=== PATIENT | male | born 1965 | race African-American/Black ===

== ENCOUNTER 2025-07-06 22:56 | Inpatient (IN) | payer BC, SELFPAY ==
[2025-07-06] VITALS (10 sets, daily range): BP systolic 99–155; BP diastolic 71–88; BMI 28.9
--- NOTE | 2025-07-06 15:28 | ED.GENMED ---
History of Present Illness
<Geeta Leyva MD, Resident - Last Filed: 07/06/25 20:57>
General
Chief Complaint: Fever
Source: patient and significant other
Exam Limitations: none
Time Seen by Provider: 07/06/25 15:27
History of Present Illness
History of Present Illness:
59yo M with a hx of prostate ca (s/p resection, chemo) and recurrent incisional hernia c/b bowel incarceration (s/p repair & partial bowel resection last month) who presents with 1 day of fevers.
Patient was recently discharged from [facility] after repair of incarcerated incisional hernia (s/p bowel resection) on 06/17, with course c/b DVT & intraabdominal hematoma requiring operative drainage. Since discharge, pt has had serosanguinous output
from 2 abd APOLLO drains and minimal abdominal discomfort. No fevers at home (or during hospital course) until this morning, when he had a fever of 101.2. This did not resolve s/p tylenol (was 101.2 two hrs later), so he took more tylenol and come to
the ED. States that he has been feeling lethargic and exhausted for last 24hr, as well as nauseous. Denies any worsening abd pain, denies any new erythema around abd wounds, denies any purulent output from drains. Denies any vomiting, diarrhea,
constipation. Denies cough, sick contacts, chest pain. Denies dysuria. Has had NICOLE for last week, which has been improving slowly. This week, restarted his anti-androgen prostate cancer therapy & steroids. Has had some hot flashes with that
medication in the past, but this feels different. Follows with oncologist at [facility]. Took 1600mg tylenol so far at home.
Past History
<Geeta Leyva MD, Resident - Last Filed: 07/06/25 20:57>
Past History
ED Past Medical History: None
ED Past Surgical History: None
Social History
Tobacco: Non-smoker
Living: with family
Employment: Employed
Review of Systems
<Geeta Leyva MD, Resident - Last Filed: 07/06/25 20:57>
Review of Systems
All Other Systems: ROS reviewed and negative except as documented in HPI and ROS
Constitutional: Reports fever and fatigue
EENT: Reports no symptoms
Respiratory: Reports no symptoms
Cardiac: Reports no symptoms
ABD/GI: Reports no symptoms
: Reports no symptoms
Musculoskeletal: Reports edema
Skin: Reports no symptoms
Neurological: Reports no symptoms
Psychiatric: Reports no symptoms
Phy Exam
<Geeta Leyva MD, Resident - Last Filed: 07/06/25 20:57>
General Physical Exam
General Presentation: no apparent distress
General age: appears stated age
General Skin: warm and dry
General Habitus: normal
General Mental: alert
Cardiovascular Exam
Cardiovascular Exam: regular rate/rhythm and no edema
Heart Sounds: normal
Pulmonary Exam
Pulmonary Exam: lungs clear, no respiratory distress and no crackles
Gastrointestinal Exam
Gastrointestinal Exam: non tender, non distended, surgical scar and other (2 APOLLO drains with minimal serosanguinous drainage; well-healing/well-approximated surgical scar on abdomen; mild erythema surrounding APOLLO drain insertion sites; no significant
tenderness to palpation throughout stomach )
Neurological Exam
Neurological Exam: alert
Musculoskeletal Exam
Musculoskeletal Exam: full ROM and edema (bilateral NICOLE, pitting on feet 1+ )
Skin Exam
Skin Exam: normal color and warm/dry
Psychiatric Exam
Psychiatric Exam: normal mood/affect
Sepsis
<Geeta Leyva MD, Resident - Last Filed: 07/06/25 20:57>
Sepsis Screening
Sepsis Assessment: Sepsis Ruled Out
Sepsis Screen
Sepsis Screen: Sepsis Ruled Out
Date: 07/06/25
Time: 20:57
Course
<Geeta Leyva MD, Resident - Last Filed: 07/06/25 20:57>
Orders/Labs/Results
Orders:
Orders
07/06/25 15:36
Electrocardiogram (*1) Urgent
Reason for Study: Other
Other Reason for Exam: Possible Sepsis
EKG- Treatment ONCE
07/06/25 16:06
Complete Blood Count/With Diff Urgent
Comprehensive Metabolic Panel Urgent
Lactic Acid Q4H
Comment: ON ICE, CANCEL 2ND ORDER IF FIRST LACTIC ACID LEVEL <2
Prothrombin Time Urgent
Blood Culture Q20M
KEEGAN Source: Blood/Venous
Specimen Description:
Comment: Urgent from separate sites. If patient screens positive for possible sepsis
07/06/25 16:34
CT Abd/pelvis W Iv Cont Urgent
Comment:
Reason For Exam: fever, right sided pain, recent hernia repair HUP
07/06/25 16:46
COVID-19 Antigen Urgent
Source: Nasal Swab
Urinalysis Reflex To Culture Urgent
Date Specimen was Collected: 07/06/25
Time Specimen was Collected: 16:42
Urine Microscopic Reflex Cult Urgent
Blood Culture Q20M
KEEGAN Source: Blood/Venous
Specimen Description:
Comment: Urgent from separate sites. If patient screens positive for possible sepsis
Influenza A+B Rapid Molecular Urgent
KEEGAN Source: Nasal Swab
Specimen Description:
07/06/25 16:47
0.9% Sodium Chloride 1000 ml [Nss] 1,000 ml IV BOLUS
07/06/25 18:24
Acetaminophen [Tylenol] 1,000 mg .ROUTE .STK-MED ONE
Acetaminophen [Tylenol] 325 mg PO NOW STA
07/06/25 18:29
Acetaminophen [Tylenol] 650 mg PO NOW STA
07/06/25 20:44
CR Chest - 2 Views Urgent
Comment:
Reason For Exam: fever of unknown etiology
Abnormal Lab Results
07/06/25 07/06/25
16:06 16:46
WBC 12.6 H 10^3/uL
(4.8-10.8)
RBC 2.52 L 10^6/uL
(4.70-6.10)
Hgb 7.9 L g/dL
(13.0-18.0)
Hct 23.7 L %
(39.0-52.0)
MCH 31.3 H pg
(27.0-31.0)
RDW 17.1 H %
(11.5-14.5)
Plt Count 439 H 10^3/uL
(130-400)
Abs Immat Gran (auto) 0.1 H 10^3/uL
(0-0.05)
Absolute Neuts (auto) 10.8 H 10^3/uL
(1.4-6.5)
Absolute Lymphs (auto) 0.7 L 10^3/uL
(1.2-3.4)
Absolute Monos (auto) 1.0 H 10^3/uL
(0.1-0.6)
Neutrophils % 85.8 H %
(42.2-75.2)
Lymphocytes % 5.2 L %
(20.5-51.1)
PT 18.1 H Sec
(11.4-14.6)
Sodium 131 L mmol/L
(135-145)
Glucose 107 H mg/dl
(70-99)
Total Protein 5.7 L g/dl
(6.3-8.2)
Albumin 3.0 L g/dl
(3.5-5.0)
Urine Urobilinogen 2+ A
(Neg - 1+)
Urine RBC 3-6 A /HPF
(0-2)
Urine Bacteria (Reflex) Few A
(Negative)
Urine Albumin (Reflex) 1+ A
(Neg - Trace)
07/06/25 16:06
07/06/25 16:06
Vital Signs
Initial and Last Documented VS:
Initial Vital Signs
Temp Pulse Resp BP Pulse Ox
98.4 F 90 16 99/73 100
07/06/25 15:04 07/06/25 15:04 07/06/25 15:04 07/06/25 15:04 07/06/25 15:04
Last Documented Vital Signs
Temp Pulse Resp BP Pulse Ox
100.8 F H 99 17 155/88 96
07/06/25 20:08 07/06/25 20:00 07/06/25 20:00 07/06/25 20:00 07/06/25 19:30
<Nubia Negrete, DO - Last Filed: 07/06/25 20:48>
Orders/Labs/Results
Orders:
Orders
07/06/25 15:36
Electrocardiogram (*1) Urgent
Reason for Study: Other
Other Reason for Exam: Possible Sepsis
EKG- Treatment ONCE
07/06/25 16:06
Complete Blood Count/With Diff Urgent
Comprehensive Metabolic Panel Urgent
Lactic Acid Q4H
Comment: ON ICE, CANCEL 2ND ORDER IF FIRST LACTIC ACID LEVEL <2
Prothrombin Time Urgent
Blood Culture Q20M
KEEGAN Source: Blood/Venous
Specimen Description:
Comment: Urgent from separate sites. If patient screens positive for possible sepsis
07/06/25 16:34
CT Abd/pelvis W Iv Cont Urgent
Comment:
Reason For Exam: fever, right sided pain, recent hernia repair HUP
07/06/25 16:46
COVID-19 Antigen Urgent
Source: Nasal Swab
Urinalysis Reflex To Culture Urgent
Date Specimen was Collected: 07/06/25
Time Specimen was Collected: 16:42
Urine Microscopic Reflex Cult Urgent
Blood Culture Q20M
KEEGAN Source: Blood/Venous
Specimen Description:
Comment: Urgent from separate sites. If patient screens positive for possible sepsis
Influenza A+B Rapid Molecular Urgent
KEEGAN Source: Nasal Swab
Specimen Description:
07/06/25 16:47
0.9% Sodium Chloride 1000 ml [Nss] 1,000 ml IV BOLUS
07/06/25 18:24
Acetaminophen [Tylenol] 1,000 mg .ROUTE .STK-MED ONE
Acetaminophen [Tylenol] 325 mg PO NOW STA
07/06/25 18:29
Acetaminophen [Tylenol] 650 mg PO NOW STA
07/06/25 20:44
CR Chest - 2 Views Urgent
Comment:
Reason For Exam: fever of unknown etiology
Abnormal Lab Results
07/06/25 07/06/25
16:06 16:46
WBC 12.6 H 10^3/uL
(4.8-10.8)
RBC 2.52 L 10^6/uL
(4.70-6.10)
Hgb 7.9 L g/dL
(13.0-18.0)
Hct 23.7 L %
(39.0-52.0)
MCH 31.3 H pg
(27.0-31.0)
RDW 17.1 H %
(11.5-14.5)
Plt Count 439 H 10^3/uL
(130-400)
Abs Immat Gran (auto) 0.1 H 10^3/uL
(0-0.05)
Absolute Neuts (auto) 10.8 H 10^3/uL
(1.4-6.5)
Absolute Lymphs (auto) 0.7 L 10^3/uL
(1.2-3.4)
Absolute Monos (auto) 1.0 H 10^3/uL
(0.1-0.6)
Neutrophils % 85.8 H %
(42.2-75.2)
Lymphocytes % 5.2 L %
(20.5-51.1)
PT 18.1 H Sec
(11.4-14.6)
Sodium 131 L mmol/L
(135-145)
Glucose 107 H mg/dl
(70-99)
Total Protein 5.7 L g/dl
(6.3-8.2)
Albumin 3.0 L g/dl
(3.5-5.0)
Urine Urobilinogen 2+ A
(Neg - 1+)
Urine RBC 3-6 A /HPF
(0-2)
Urine Bacteria (Reflex) Few A
(Negative)
Urine Albumin (Reflex) 1+ A
(Neg - Trace)
07/06/25 16:06
07/06/25 16:06
Vital Signs
Initial and Last Documented VS:
Initial Vital Signs
Temp Pulse Resp BP Pulse Ox
98.4 F 90 16 99/73 100
07/06/25 15:04 07/06/25 15:04 07/06/25 15:04 07/06/25 15:04 07/06/25 15:04
Last Documented Vital Signs
Temp Pulse Resp BP Pulse Ox
100.8 F H 99 17 155/88 96
07/06/25 20:08 07/06/25 20:00 07/06/25 20:00 07/06/25 20:00 07/06/25 19:30
<Geeta Leyva MD, Resident - Last Filed: 07/06/25 20:57>
MDM/Problems Addressed
Differential Diagnosis Includes:
Ddx:
Intraabdominal infection, abscess
SSTI surgical site
URI prodromal
UTI
Medication SE (anti-androgen medication that pt recently restarted can be associated with hot flashes & fatigue)
Current temp 98.4, AVSS
MDM/Problems Addressed:
- CBC, CMP
- Lactic acid
- Blood cx x2
- UA w reflex to cx
- COVID, FLU
- Consider CT a/p w IV contrast
<Geeta Leyva MD, Resident - Last Filed: 07/06/25 20:57>
*Pulse Oximetry
SaO2: 100
Oxygen Mode of Delivery: Room air
Patient hypoxic: no
*Critical Care Note
Total Time (30-74mins, 75-104mins- exclusive of procedures): Not Applicable
<Geeta Leyva MD, Resident - Last Filed: 07/06/25 20:57>
Update Note
Update Note:
WBC elevated 12.6 (no comparison available)
6:00pm
CT a/p without signs c/f intraabdominal infection; gas.
1. There is heterogeneous thickening/expansion of the ventral abdominal wall soft tissues/rectus abdominis musculature, with a surgical drain in place. Mild overlying subcutaneous inflammatory change. Findings are most in keeping with postoperative
changes with seroma/hematoma formation within and just deep to the abdominal wall musculature. No intraperitoneal extension. No convincing evidence for abscess. No evidence for recurrent abdominal wall hernia.
2. Probable mild postoperative ileus.
3. Urinary bladder contains a small amount of intravesical gas anteriorly, possibly related to recent instrumentation (versus cystitis).
Repeat temperature 102.5.
Will give 650mg tylenol (total 2250 mg today)
Will plan to call surgery at [facility] for clearance on admission here for FUO vs. admit at [facility]. Surgery was done by Murray Tamez (plastics) & Maxime Valdez (gen surg).
6:45pm
[facility] left voicemail geovany Tamez.
8:45pm
Spoke with [place] oncologist & Joi - agree with plan to admit for observation overnight at [place]. Can try dose of broad spectrum abx. If not sx, okay to discharge tmrw.
Will get CXR for completeness to eval sources of possible infection, although no pulm sx.
ED Attending Note
<Geeta Leyva MD, Resident - Last Filed: 07/06/25 20:57>
-
Portions of this chart may have been created with voice recognition software.� Occasional wrong word or��sound alike� substitutions may have occurred due to the inherent limitations of voice recognition software.
<Nubia Negrete DO - Last Filed: 07/06/25 20:48>
ED Attending Note
Patient seen and examined by attending physician: Yes
I performed the substantive portion of visit, reviewed & personally made and approve the management plan that is documented in note by myself or BLAISE.: Yes
I performed a history and physical exam of patient and discussed management with resident, I reviewed resident's note and agree with documented findings and plan of care.: Yes
ED Attending Note:
59-year-old male with history of prostate CA presenting to the emergency department for fever. Patient status post complicated hospital admission in June at [facility]. Patient was initially hospitalized for
incarcerated hernia, status post repair. Hospitalization complicated by development of right lower extremity DVT, now on Xarelto. Patient also developed a postoperative hematoma, which also required operative repair. Patient now has [address] He was discharged a week ago. Notes that he was restarted on his therapeutic agent, abiraterone, and is also on Lupron. Patient's oncologic care is also at [facility]. Fever this morning was 1 and 1.3. He took Tylenol and fever still present
so he took another dose and came to the hospital. Denies specific symptoms such as cough or fever. Does note some general abdominal discomfort, however still in the post operative period. Vital signs on arrival are relatively unremarkable,
however on recheck of temperature in, 99.9.
On exam patient is resting, no acute distress. Unremarkable cardiac and pulmonary exam. Patient overall nontoxic. On abdominal exam, APOLLO drains in place to bilateral lower quadrants with minimal drainage. Mild pain to the right lower quadrant
without rebound or guarding. Also some generalized discomfort to the right lower extremity except swelling, however partner at bedside notes that the swelling is improved, known DVT. Given postoperative. With fever, plan for laboratory analysis,
cultures, viral swabs, CT imaging to ensure no postoperative complications
18:30 - Patient's labs do show leukocytosis, otherwise unremarkable. No neutropenia. Urine without sign of infection. CT shows postoperative changes without findings of acute infection. On recheck of temperature, remains febrile. Will redose
Tylenol. Will discuss with surgery at [facility] given fever of unknown etiology in the postop period
20:30 -delay in reaching physician at [facility]. Did speak to physician on-call for surgery. At this time without findings of acute surgical complication, feel reasonable to stay at our facility for continued monitoring, following
concerns. Patient is agreeable to this plan.
20:45 -did speak to patient's surgeon, Dr. Cueva, in agreement with no concern at this time for postoperative infection, agrees with observation admission disposition home if remains hemodynamically
Discharge Plan
Departure
Patient Disposition: Admit
Date of Disposition: 07/06/25
Time of Disposition: 20:57
Admit to: Med/Surg
Admit to doctor: Wilmer
Presentation/result/management discussed w/ accepting MD/DO: Hospitalist
Patient with high blood pressure during this ER visit?: No
Condition: Good
Covid-19: Negative COVID-19
Discharge Problem:
Fever of unknown origin (FUO)
Prescriptions:
No Action
ciprofloxacin HCl [Ciloxan] 5 ML drops
1 drp OPHTHALMIC .Q4H WHILE AWAKE Qty: 5 0RF
Referrals:
PRIVATE,PHYSICIAN [Family Provider, Internal Medicine]
Interventions
Interventions:
*Risk Screen - Suicide Last Done: 07/06/25 16:00
*General Assessment Last Done: 07/06/25 16:00
*Neglect/Abuse Screening Last Done: 07/06/25 16:00
*ED COVID-19 Vaccine History Last Done: 07/06/25 16:00
*ED Influenza Vaccine History Last Done: 07/06/25 16:00
[facility] Fall Risk Assessment Tool Last Done: 07/06/25 16:00
ED- Neurological Assessment Last Done: 07/06/25 16:00
ED-Skin Assessment Last Done: 07/06/25 16:00
Discharge Date and Time
Print Language: DUTCH
[2025-07-06 16:21] LABS: Hematocrit 23.7 % (39.0-52.0); Hemoglobin 7.9 g/dL (13.0-18.0); Mean Corp Hgb Conc. 33.3 g/dL (33.0-37.0); Mean Corpuscular Volume 94.0 fL (80.0-94.0); Nucleated Red Blood Cells % 0 % (-); Platelet Count 439 10^3/uL (130-400); Red Cell Dist. Width 17.1 % (11.5-14.5)
[2025-07-06 16:33] LABS: INR 1.49; PT 18.1 Sec (11.4-14.6)
[2025-07-06 16:43] LABS: ALT (SGPT) 36 U/L (0-50); AST (SGOT) 25 U/L (17-59); Albumin 3.0 g/dl (3.5-5.0); Alkaline Phosphatase 71 U/L (38-126); Blood Urea Nitrogen 10 mg/dl (9-20); Calcium 8.6 mg/dl (8.4-10.2); Carbon Dioxide 27 mmol/L (22-30); Chloride 103 mmol/L (98-107); Estimated Creatinine Clearance 93 ml/min; Glucose 107 mg/dl (70-99); Potassium 3.8 mmol/L (3.5-5.1); Sodium 131 mmol/L (135-145); Total Protein 5.7 g/dl (6.3-8.2); eGFR > 60.00
[2025-07-06 17:09] LABS: Urine Character Clear (Clear)
[2025-07-06 17:23] LABS: COVID-19 Antigen Negative (Negative)
[2025-07-06 17:26] LABS: Urine White Cell 0-2 /HPF (0-5)
[2025-07-06] MEDS: TYLENOL 650 MG PO (18:30)
[2025-07-06] MEDS: NSS 1000 IV (18:32)
--- NOTE | 2025-07-06 21:32 | HPS.HSE ---
Family Physician
-
Family Physician: PHYSICIAN PRIVATE
Chief Complaint
-
Fever
History of Present Illness
Patient is a 59 y/o male past medical history of prostate cancer with multiple prior hernia repairs who presents with fever. Patient recently underwent a ventral hernia repair on Jun 17. His hospitalization was complicated by development of RLE
DVT for which he was initially started on a heparin drip. Patient subsequently developed acute blood loss anemia related to a hematoma. Patient underwent hematoma evaluation on Jun 24. Patient was restarted on the heparin drip and Hgb remained
stable. He was discharged from the hospital on July 02 on Eliquis, and with [address] to the lower abdomen. Today patient developed acute onset of fevers which have persisted for several hours. Patient last received Tylenol at 18:30
and upon my evaluation ~ 3.5 hours later temperature is back up to 102.5F. Patient reports generalized weakness, but denies any other complaints at the present time.
Medical History
Past Medical History
Past Medical History: Reports Other
Additional Past Medical History:
Prostate Cancer
DVT
Past Surgical History: Reports Other
Additional Past Surgical History:
Prostatectomy
Mutliple Hernia Repair
Social History
Tobacco: Non-smoker
Alcohol: Occasional
Drug: Marijuana (Last usage June)
Family History
Family History: Not pertinent
Allergies / Home Medications
Allergies reflects when Allergies were last updated in [employer].
Home Medications with original date entered in [employer]
Allergy/Medication List:
Allergies
Allergy/AdvReac Type Severity Reaction Status Date / Time
No Known Allergies Allergy Unverified 07/06/25 15:09
Home Medications
abiraterone 250 mg tablet (Zytiga) 1,000 mg PO DAILY 07/06/25
apixaban 5 mg tablet (Eliquis) 5 mg PO BID 07/06/25
prednisone 5 mg tablet 5 mg PO DAILY 07/06/25
Review of Systems
-
History Source: Patient
A 12 point ROS was completed and negative except as noted: Yes
Constitutional: Reports Fever
Respiratory: Denies Cough or Trouble Breathing
Cardiac: Denies Chest Pain or Palpitations
Abdomen/GI: Denies Abdominal Pain, Nausea, Vomiting, Diarrhea or Constipated
Skin: Denies Rash
Physical Exam
Vital Signs
Vital Signs
Temp Pulse Resp BP Pulse Ox
100.5 F H 95 27 134/76 97
07/06/25 21:10 07/06/25 21:08 07/06/25 21:08 07/06/25 21:08 07/06/25 21:08
Physical Exam
General: Comfortable and Conversant
HEENT: Anicteric and Moist mucous membranes
Respiratory: Clear and Non Labored Respirations
Cardiac: S1/S2, Regular Rhythm and Tachycardia (Slightly)
GI: Soft, Non Tender and Other (Bilateral APOLLO Drains: Right drain with serosanguinous drainage, Left drain less drainage slightly cloudy; Drain sites without tenderness of surrounding erythema; Midline ventral hernia repair site with sutures in place
without drainage or surrounding erythema)
Rectal: Deferred by Provider
Genito-urinary: Clear Urine
Musculoskeletal: No Clubbing, No Cyanosis and No Edema
Skin: Warm and Dry
Neuro: Awake, Alert, Oriented and Nonfocal/grossly intact
Psych: Calm
Laboratory Results
-
07/06/25 16:06
07/06/25 16:06
Laboratory Results
PT 18.1 Sec (11.4-14.6) H 07/06/25 16:06
INR 1.49 07/06/25 16:06
Lactic Acid 0.9 mmol/L (0.7-2.0) 07/06/25 16:06
Lactic Acid Cancelled 07/06/25 16:06
Total Bilirubin 1.0 mg/dl (0.2-1.3) 07/06/25 16:06
AST 25 U/L (17-59) 07/06/25 16:06
ALT 36 U/L (0-50) 07/06/25 16:06
Alkaline Phosphatase 71 U/L (38-126) 07/06/25 16:06
Abd/Pelvis CT Scan:
There is heterogeneous thickening/expansion of the ventral abdominal wall soft tissues/rectus abdominis musculature, with a surgical drain in place. Mild overlying subcutaneous inflammatory change. Findings are most in keeping with postoperative
changes with seroma/hematoma formation within and just deep to the abdominal wall musculature. No intraperitoneal extension. No convincing evidence for abscess. No evidence for recurrent abdominal wall hernia.
Probable mild postoperative ileus.
Urinary bladder contains a small amount of intravesical gas anteriorly, possibly related to recent instrumentation (versus cystitis).
Data Reviewed
-
CT Scan: Report Reviewed by me
Lab Data: Labs Reviewed by me
Impression/Plan
-
Fever unclear etiology, clinical concern for infection following recent ventral hernia repair (06/17) and hematoma evacuation (06/24) at [facility]
-Consult Surgery and Infectious Disease
-Obtain cultures from APOLLO drains
-Await blood cultures
-Start empiric Vancomycin and Zosyn
Acute Blood Loss Anemia
-Hgb stable from recent discharge from [facility] on Jul 02
Right Lower Extremity DVT - Jun 2025
-Continue Eliquis
Prostate Cancer with localized recurrence
-Hold prednisone and abiraterone as recommended by patient's primary oncologist
-Patient also received Lupron injection on Jul 03
Code Status: Full Code
--- NOTE | 2025-07-06 21:49 | W.PN.UPDATE ---
Update Note
Progress Note Update
This note serves as an addendum to the H&P by plate keeper BLAISE�
[facility]
HPI�
59M
HX prostate cancer (s/p surgical resection & anti-androgen therapy) and recurrent incisional hernias (most recently s/p incarcerated hernia repair at [facility] 06/17) c/b DVT & abdominal hematoma.
Pt had been recovering well at home, then developed fever 101.5, 101.2 today along with lethargy/malaise.
No upper and lower respiratory sxs.
Reviewed VS:
Vital Signs
Temp Pulse Resp BP Pulse Ox
100.5 F H 97 22 134/76 95
07/06/25 21:10 07/06/25 21:30 07/06/25 21:30 07/06/25 21:08 07/06/25 21:30
07/06/25
18:21 07/06/25
20:08 07/06/25
21:10
Temp 102.5 F H 100.8 F H 100.5 F H
PE
Gen: Not toxic
HEENT: aniteric
Neck: supple
Lungs: CTA
Cor:RRR
Abdomen:�
2 APOLLO drains with minimal serosanguineous drainage
well-healing/well-approximated surgical scar on abdomen
mild erythema surrounding APOLLO drain insertion sites
no significant tenderness to palpation throughout stomach
SENIOR CYBER SECURITY ANALYST:AAO3
Admission w/u:
07/06/25 07/06/25
16:06 16:46
WBC 12.6 H
Hgb 7.9 L
MCV 94.0
Plt Count 439 H
INR 1.49
Sodium 131 L
Creatinine 0.9
eGFR > 60.00
Albumin 3.0 L
Leukocyte Esterase Rfl Negative
Urine WBC (Reflex) 0-2
SARS-CoV-2 Antigen Negative
07/06/25
16:06
Lactic Acid 0.9
NEG Flu
2 APOLLO drain
BCx pending.
CXR Pending
CT AP W Iv Cont
1. There is heterogeneous thickening/expansion of the ventral abdominal wall soft tissues/rectus abdominis musculature, with a surgical drain in place.
Mild overlying subcutaneous inflammatory change. Findings are most in keeping with postoperative changes with seroma/hematoma formation within and just deep to the abdominal wall musculature. No intraperitoneal extension. No convincing
evidence for abscess. No evidence for recurrent abdominal wall hernia.
2. Probable mild postoperative ileus.
3. Urinary bladder contains a small amount of intravesical gas anteriorly, possibly related to recent instrumentation (versus cystitis).
NO PRIOR hospitalist admission:
ASSESSMENT & PLAN
Evaluation for post op fever
Associated SIRS - unclear origin
Diff origins: extraperitoneal . less likely intraperitoneal
- Somewhat HD stable
- BCx pending
- Empiric BS ABx with IV Zosyn and IV Vancomycin
- IV NS
- Tylenol PRN
- FU T curve and WCC
- ID consult
Recent incarcerated hernia repair at [facility] 06/17 due to recurrent incisional hernias
HX prostate cancer (s/p surgical resection & anti-androgen therapy) c/b DVT & abdominal hematoma requiring Heparin gtt and clot evacuation
- P surgery at [facility]
- ER attd discussed with Primary Surgeon - suggest IV ABx and observe
Post op R Claudio DVT; on Eliquis
Large abdominal hematoma s/p hematoma clot evacuation
DVT Px:
Full code
IP MS
[2025-07-06] MEDS: TYLENOL 1000 MG PO (22:31)
[2025-07-06] MEDS: ZOSYN 50 IV (22:31)
[2025-07-06] MEDS: ELIQUIS 10 MG PO (22:46)
[2025-07-06] MEDS: VANCOCIN 540 MG IV (22:46)
[2025-07-06 23:14] LABS: Procalcitonin 0.20 ng/ml (0.0-0.25)
[2025-07-06] MEDS: MOTRIN 400 MG PO (23:44)
--- NOTE | 2025-07-06 23:52 | PTCARENOTE ---
Pt received from ED to [facility]-2. Pt oriented to room and call hawkins.
[2025-07-07] VITALS (8 sets, daily range): BP systolic 111–166; BP diastolic 68–89; BMI 29.8
[2025-07-07] MEDS: NSS 1000 IV ×2 (00:56→14:37)
--- NOTE | 2025-07-07 01:51 | PHA.VAN.IN ---
Assessment
- Assessment
Renal Function: Appears similar to baseline
Concomitant Antimicrobials: Piperacillin/Tazobactam
AUC Dosing Plan
- Empiric Dosing
Initial / Loading Dose: 2000 mg @ 2246
Maintenance Regimen: 750 mg IV Q8H
Estimated AUC (mcg*h/mL): 449
Estimated Peak (mcg*h/mL): 24.3
Estimated Trough (mcg/ml): 14.0
Estimated Half Life (H): 8.8
- Monitoring
No levels ordered at this time: Level to be ordered upon follow-up
Pharmacokinetics Vancomycin I
- -
Patient Age: 59
Patient Sex: Male
Vancomycin Day #: 1
Indication: Empiric
Requesting Provider: Jeffrey Burger PA-C
Height / Weight:
Height 5 ft 10 in
Actual Weight 94.064 kg
- Vital Signs / Lab Results
Temp Pulse Resp BP Pulse Ox
99.4 F 93 16 111/70 97
07/07/25 01:36 07/07/25 00:19 07/07/25 00:19 07/07/25 00:19 07/07/25 00:19
Lab Results - Hematology
07/06/25
16:06
WBC 12.6 H
Lab Results - Chemistry
07/06/25
16:06
BUN 10
Creatinine 0.9
Estimated Creat Clear 93
Albumin 3.0 L
07/06/25 07/06/25 07/06/25
16:06 16:06 22:26
Lactic Acid 0.9 Cancelled < 0.5 L
Lab Results - Urine
07/06/25
16:46
Urine Nitrite (Reflex) Negative
Leukocyte Esterase Rfl Negative
Urine WBC (Reflex) 0-2
Ur Squamous Epith Cells 3-5
Urine Bacteria (Reflex) Few A
Microbiology Results
07/06/25 16:46 Influenza Types A & B (PINKY) - Final
Nasal Swab Negative for Influenza A & B, NAAT
Negative results must be combined with clinical observations
and patient history.
Nucleic Acid Amplification test (NAAT)performed on the
[employer] platform.
[2025-07-07] MEDS: ZOSYN 50 IV ×4 (05:19→23:02)
[2025-07-07] MEDS: VANCOCIN 150 IV ×3 (06:02→21:56)
[2025-07-07] MEDS: TYLENOL 650 MG PO ×3 (07:37→23:06)
[2025-07-07] MEDS: ELIQUIS 5 MG PO ×2 (07:37→19:33)
--- NOTE | 2025-07-07 09:39 | CM ---
Patient seen at bedside on . Patient states that he lives with his significant other in a 2 story home with no DME that he uses. Patient has a [facility] nurse Regla Juarez that follows with him when home. Patient PCP is Dr. Betzy Steinberg from [facility] and he uses the [facility] in [place]. Patient plan is for discharge home with no needs at this time. CM will continue to follow for discharge planning needs.
Plan; home with [facility] nurse cade; unclear if from home health or another office/department
--- NOTE | 2025-07-07 09:40 | PTCARENOTE ---
Pt's temp at 7am was 100.7. Tylenol given; temp recheck 100.6. Hospitalist aware.
[2025-07-07 10:24] LABS: Hematocrit 24.7 % (39.0-52.0); Hemoglobin 8.0 g/dL (13.0-18.0); Mean Corp Hgb Conc. 32.4 g/dL (33.0-37.0); Mean Corpuscular Volume 95.7 fL (80.0-94.0); Platelet Count 412 10^3/uL (130-400); Red Cell Dist. Width 16.6 % (11.5-14.5)
[2025-07-07] MEDS: NSS IV (11:24)
[2025-07-07 11:56] LABS: Blood Urea Nitrogen 11 mg/dl (9-20); Calcium 8.3 mg/dl (8.4-10.2); Carbon Dioxide 23 mmol/L (22-30); Chloride 103 mmol/L (98-107); Estimated Creatinine Clearance 90 ml/min; Glucose 95 mg/dl (70-99); Potassium 3.5 mmol/L (3.5-5.1); Sodium 131 mmol/L (135-145); eGFR > 60.00
--- NOTE | 2025-07-07 12:38 | CON.GS ---
Consultation
-
Date/Time Consultation Performed: 07/07/25 1115
Medical History
-
Chief Complaint: fever
History of Present Illness:
Mr Ambriz is a 59 yo male with a h/o prostate cancer status post prostatectomy now on Zytiga (with prednisone) and Lupron and DVT's (UE and LE) who developed a hernia in the short post operative period and was taken for a mesh repair of an
incisional hernia in 2016 with failure of the repair and a second surgery for repair shortly thereafter. He notes that his hernia quickly returned and was increasing in size after this second surgery as well. He was recently with his mother at a
urologist appointment and the surgeon there noted how large his hernia was through his clothing and recommended he follow up with surgery for evaluation. He did this and underwent a ventral hernia repair with both plastics (Tiffanie) and general
surgery (José Miguel) at [facility] with a SBR during the procedure as well on 06/17/25. His course of stay was complicated by development of DVT immediately post op in his RLE with initiation of heparin drip and subsequent development of a intraabdominal
hematoma with RTOR for management on 06/21/25. He had a prolonged course of stay but was eventually able to be transitioned to PO Eliquis and discharged to home on 07/02/25. He felt rather well at first but yesterday he began feeling very fatigued
with mild nausea and fevers. At home his temperature was 101.3 and he was advised by his home care team to present to the ED for evaluation. He has [address] from his prior surgery both draining minimal SSF. His incision is healing well
without erythema or drainage with nylong sutures noted to be in place. He notes he has been passing regular BM's. He denies bleeding issues. Nausea has resolved and he is tolerating regular diet currently.
Past Medical History
Past Medical History: Cancer (prostate s/p surgery, now on maintenance lupron and zytiga with prednisone) and Other (DVT's to UE and LE most recently to RLE)
Past Surgical History: Bowel Resection (SBR at time of VHR), Hernia Repair (Incisional x2 in 2016 with recurrence, VHR 06/17/25 c/b hematoma with RTOR 06/21/25) and Urological (prostatectomy )
Social History
Tobacco: Non-Smoker
Alcohol: Occasional
Drug: Marijuana
Family History
Family History: Cancer (bladder ca in mother)
Allergies / Home Medications
Allergy/AdvReac Type Severity Reaction Status Date / Time
No Known Allergies Allergy Unverified 07/06/25 15:09
�Medication �Instructions �Recorded �Confirmed �Type
abiraterone 250 mg tablet (Zytiga) 1,000 mg PO DAILY 07/06/25 07/07/25 History
apixaban 5 mg tablet (Eliquis) 5 mg PO BID 07/06/25 07/07/25 History
prednisone 5 mg tablet 5 mg PO DAILY 07/06/25 07/07/25 History
Review of Systems
-
History Source: Patient
All other systems: Negative unless noted
A 10 point review of systems was completed, and was negative except as per HPI.
Physical Exam
Vital Signs
Temp Pulse Resp BP Pulse Ox
99.5 F 100 17 133/85 98
07/07/25 11:12 07/07/25 11:12 07/07/25 11:12 07/07/25 11:12 07/07/25 11:12
07/06/25 07/07/25 07/08/25
06:59 06:59 06:59
Actual Weight 94.064 kg
Body Mass Index (BMI) 29.8
Lab Results
07/07/25 10:14
07/07/25 10:14
WBC 14.6 10^3/uL (4.8-10.8) H 07/07/25 10:14
Hgb 8.0 g/dL (13.0-18.0) L 07/07/25 10:14
Hct 24.7 % (39.0-52.0) L 07/07/25 10:14
Plt Count 412 10^3/uL (130-400) H 07/07/25 10:14
Abs Immat Gran (auto) 0.1 10^3/uL (0-0.05) H 07/06/25 16:06
Neutrophils % 85.8 % (42.2-75.2) H 07/06/25 16:06
Physical Exam
General: Well Developed and Well Nourished
HEENT: Normocephalic and Moist Mucous Membranes
Respiratory: Non Labored Respirations
GI: Soft, Non Tender, Non Distended and Other (nylon sutures intact to incision. incision healing well without erythema or drainage. APOLLO drains to lower abd bilaterally both with SSF (no purulence))
Skin: Warm
Neuro: Awake, Alert and AO x 3
Psych: Calm
Data Reviewed
-
CT Scan: Image Personally Visualized and interpreted, Report Reviewed by me, Discussed with Physician and Discussed with Patient
Labs: Labs Reviewed by me, Discussed with Physician and Discussed with Patient
Old Records: Reviewed
Assessment / Plan
-
59 yo male with a h/o prostate cancer status post prostatectomy now on Zytiga (with prednisone) and Lupron and DVT's (UE and LE) with recurrent incisional hernia repairs x2 around 2015 with recurrence, recent VIHR with SBR at [facility] on 06/17 by
plastics (Tiffanie) and general ([facility]) surgery c/b DVT with development of hematoma on AC and RTOR on 06/21 for management. APOLLO x2 left in place and pt discharged to home on Eliquis on 07/02 now presenting with fevers and fatigue. CT imaging with
thickening/expansion of the ventral abdominal wall soft tissues/rectus abdominis musculature without abscess. Evidence of seroma/hematoma formation and pelvic fluid but no significant drainable collections. APOLLO's in place. No evidence of SBR. T max
of 102.5 yesterday evening. Low grade fever to 100.6 this am. BP stable. Borderline tachycardia with HR of 100. Leukocytosis present with uptrend today with WBC of 14.6. VSS. Regular diet was started on admission and he seems to be tolerating it.
Drain and blood cx pending. Flu neg
Records from [facility] unavailable; fortunately, pt does seem to be an excellent historian. Transfer to [facility] under the care of his primary surgeon was attempted last night in the ED with reported recommendation to stay at [facility] for the time being. Will
follow closely here at [facility] for now; but, if fevers/leukocytosis persist would attempt to transfer to [facility] once again. D/W patient who would prefer to be back at [facility] with his primary surgical team as well if he will need to remain as an inpatient for
a number of days
Plan:
Ok to c/w regular diet
c/w abx. ID consulted for recommendations
Blood and drain cx sent and pending
Trend labs
No surgical interventions planned at this time, OK to continue with Eliquis
--- NOTE | 2025-07-07 12:49 | CON.ID ---
Consultation
-
Date/Time Consultation Requested: 07/07/25 0:07
Date/Time Consultation Performed: 07/07/25 12:49
Requesting Provider: Tao BURDEN
Performing Provider: Dr Man
Reason for Consultation: Fever
Chief Complaint / Past History
Chief Complaint
fever
History of Present Illness
Mr Ambriz is a 59 year old male with history of 06/17 for elevative incisional hernia with bowel resection at [facility] with plastics and general surgery, he had two APOLLO drains place and these have continued in place until now. History also notable for
prostate cancer s/p resection and chemotherapy. His operative course was complicated by DVT and large abdominal hematoma formation s/p clot evacuation. He had 5 units of PRBCs over the course of his hospitalization. He was discharged 07/05 on
eliquis. He has minimal serosanguineous drainage from the drains. Then 07/06, yesterday he developed a new fever at home to 102.5 and malaise along with mild nausea. He denies: worsening abdominal pain, erythema around surgical sites, purulence
from the drains. Also no: headache, sinus tenderness, sore throat, cough vomiting/diarrhea/constipation, sick contacts, chest pain, dysuria. Having regular BMs. No other focal complaints. Of note he restarted his anti-androgen therapy and
prednisone 5 mg. Has a healthy cat, no scratches or bites. No recent travel.
Since arrival here he has been spiking fevers to a tmax of 102.5, fever curve may be improving, bp stable, wbc initially 12.6 today 14.6, hgb 8.0, plt 412, L shift was present on arrival, Na 131, cr 0.9, lactic acid 0.9, t bili 1.0, ast 25, alt 36,
alk phos 71, UA no pyuria, covid ag negative, CT head no acute abnormality, CT a/p with IV contrast: likely posoperative seroma/hematoma no evidence for abscess, CXR no acute CP process, procalcitonin 0.2, blood cultures x2 in progress, influenza
negative, body fluid cultures x2 were taken from the old drains, patient is currently on vancomycin and zosyn, reports considerable improvement overnight described initial malaise as an 8 and today malaise as a 2. ID is consulted for assistance
with management.
Past History
Additional Past Medical History:
Prostate Cancer
DVT
Additional Past Surgical History:
Prostatectomy
Multiple Hernia Repair - (Incisional x2 in 2016 with recurrence, VHR 06/17/25 c/b hematoma with RTOR 06/21/25
Allergy History:
No Known Allergies Allergy (Unverified 07/06/25 15:09)
Medications Reviewed: Yes
Social History
Tobacco: Non-Smoker
Alcohol: Occasional
Drug: Marijuana
Family History
Family History: Not Pertinent
Review of Systems
Review of Systems
A 12 point ROS was completed and negative except as noted: Yes
Constitutional: Reports Fever
Respiratory: Denies Cough or Trouble Breathing
Cardiac: Denies Chest Pain or Palpitations
Abdomen/GI: Denies Abdominal Pain, Nausea, Vomiting, Diarrhea or Constipated
Skin: Denies Rash
Vital Signs
Temp Pulse Resp BP Pulse Ox
99.5 F 100 17 133/85 98
07/07/25 11:12 07/07/25 11:12 07/07/25 11:12 07/07/25 11:12 07/07/25 11:12
Physical Exam
Physical Exam
Constitutional: No Acute Distress
Cardiovascular: Regular Rate and S1/S2; Negative Murmur or Rub
Pulmonary: Clear and Symmetric; Negative Wheezes, Rales or Rhonchi
Gastrointestinal: Soft, Non Tender, Non Distended and Normal Bowel Sounds
Skin: Warm and Dry; Negative Rash or Jaundice
Wound: Other (midline surgical site well approximated without erythema warmth, dehiscence; APOLLO drains with scant serosanguinous drainage, tiny erythematous rim around the drain insertion sites)
Lab / Diagnostic Study Results
07/07/25 10:14
07/07/25 10:14
Abs Immat Gran (auto) 0.1 10^3/uL (0-0.05) H 07/06/25 16:06
Absolute Neuts (auto) 10.8 10^3/uL (1.4-6.5) H 07/06/25 16:06
Absolute Lymphs (auto) 0.7 10^3/uL (1.2-3.4) L 07/06/25 16:06
Absolute Monos (auto) 1.0 10^3/uL (0.1-0.6) H 07/06/25 16:06
Absolute Basos (auto) 0.0 10^3/uL (0-0.2) 07/06/25 16:06
Immature Gran % 0.4 % (0-0.5) 07/06/25 16:06
Neutrophils % 85.8 % (42.2-75.2) H 07/06/25 16:06
Lymphocytes % 5.2 % (20.5-51.1) L 07/06/25 16:06
Monocytes % 8.1 % (1.7-9.3) 07/06/25 16:06
Eosinophils % 0.3 % (0-6) 07/06/25 16:06
Basophils % 0.2 % (0-2) 07/06/25 16:06
PT 18.1 Sec (11.4-14.6) H 07/06/25 16:06
INR 1.49 07/06/25 16:06
Lactic Acid < 0.5 mmol/L (0.7-2.0) L 07/06/25 22:26
Procalcitonin 0.20 ng/ml (0.0-0.25) 07/06/25 22:19
Ur Squamous Epith Cells 3-5 /LPF (Few) 07/06/25 16:46
Microbiology Results
Micro:
07/06/25 22:53 Body Fluid Culture - Pending
Fluid Gram Stain - Preliminary
07/06/25 22:53 Body Fluid Culture - Pending
Fluid Gram Stain - Preliminary
07/06/25 16:46 Influenza Types A & B (PINKY) - Final
Nasal Swab Negative for Influenza A & B, NAAT
Negative results must be combined with clinical observations
and patient history.
Nucleic Acid Amplification test (NAAT)performed on the
[employer] platform.
07/06/25 16:46 Blood Culture - Pending
Blood/Venous
07/06/25 16:06 Blood Culture - Pending
Blood/Venous
Assessment / Plan
Fever without a source
S/p VHR 06/17/25 c/b hematoma with RTOR 06/21/25
- blood cultures x2
- APOLLO drain cultures were taken from old drain - expect skin mine
- CXR without infiltrates
- CT a/p with IV contrast with suggestion of seroma/hematoma formation - a possible cause of fevers
- UA without pyuria
- covid and influenza screens negative
- resp viral panel ordered, procalcitonin was negative
- MRSA screen
- continue vancomycin and zosyn for now
--- NOTE | 2025-07-07 13:06 | W.PN.HOSP.TC ---
Today's Communication/Plan
-
f/u cultures
abx
reg diet
continue eliquis
monitor signs/symptoms - f/u ID and Surgery recs
Assessment / Plan
Assessment / Plan
Physical Exam
General: Comfortable and Conversant
HEENT: Anicteric and Moist mucous membranes
Respiratory: Clear and Non Labored Respirations
Cardiac: S1/S2, Regular Rhythm and Tachycardia (Slightly)
GI: Soft, Non Tender and Other (Bilateral APOLLO Drains: Right drain with serosanguinous drainage, Left drain less drainage slightly cloudy; Drain sites without tenderness of surrounding erythema; Midline ventral hernia repair site with sutures in place
without drainage or surrounding erythema)
Rectal: Deferred by Provider
Genito-urinary: Clear Urine
Musculoskeletal: No Clubbing, No Cyanosis and No Edema
Skin: Warm and Dry
Neuro: Awake, Alert, Oriented and Nonfocal/grossly intact
Psych: Calm
Fever unclear etiology, clinical concern for infection following recent ventral hernia repair (06/17) and hematoma evacuation (06/24) at [facility]
-Consulted Surgery and Infectious Disease
-Obtain cultures from APOLLO drains and blood cultures
-Cont Vancomycin and Zosyn
-Monitor clinical symptoms
-Reg diet
Hx of Acute Blood Loss Anemia
-Hgb stable from recent discharge from [facility] on Jul 02
Right Lower Extremity DVT - Jun 2025
-Continue Eliquis
Hyponatremia
-mild
-ctm
#Leukocytosis
-monitor fever curve, wbc
Prostate Cancer with localized recurrence
-Hold prednisone and abiraterone as recommended by patient's primary oncologist
-Patient also received Lupron injection on Jul 03
Code Status: Full Code
Anticipated Discharge: > 48 hours
Subjective/Interval History
-
Date of Service: July 07, 2025
No acute events overnight; still febrile
Objective Data
-
Labs:
Laboratory Results
07/07/25
10:14
WBC 14.6 H
Hgb 8.0 L
Hct 24.7 L
Plt Count 412 H
Sodium 131 L
Potassium 3.5
Chloride 103
Carbon Dioxide 23
BUN 11
Creatinine 0.9
Glucose 95
Calcium 8.3 L
Vital Signs:
Vital Signs
Temp Pulse Resp BP Pulse Ox
99.5 F 100 17 133/85 98
07/07/25 11:12 07/07/25 11:12 07/07/25 11:12 07/07/25 11:12 07/07/25 11:12
I&O
07/06/25 07/07/25 07/08/25
06:59 06:59 06:59
Intake Total 1230 / 1230
Output Total 645 / 645
Balance 585 / 585
Review of Systems
-
History Source: Patient
All other systems: Not reviewed unless documented
Data Reviewed
-
Diagnostic Radiology: Report Reviewed by me
CT Scan: Report Reviewed by me
Labs: Labs Reviewed by me
--- NOTE | 2025-07-07 13:15 | PHA.VAN.FU ---
Vancomycin Assessment / Plan
- Assessment
Renal Function: Stable
WBC's are: Trending Up
In the past 24 hrs, patient has been: Febrile (TMax 102.5)
Concomitant Antimicrobials: Piperacillin-tazobactam
- Dosing Plan
Continue: Vanc 750mg IV q8H
- Monitoring Plan
Peak Level: 07/08 at 0100
Trough Level: 07/08 at 0530
- Follow Up
Pharmacy will continue to follow.
Vancomycin Follow UP
- -
Patient Age: 59
Patient Sex: Male
Vancomycin Day #: 2
Indication: Empiric
Requesting Provider: Jeffrey Burger PA-C
Height / Weight:
Height 5 ft 10 in
Actual Weight 94.064 kg
- Vital Signs / Lab Results
Temp Pulse Resp BP Pulse Ox
99.5 F 100 17 133/85 98
07/07/25 11:12 07/07/25 11:12 07/07/25 11:12 07/07/25 11:12 07/07/25 11:12
Lab Results - Hematology
07/06/25 07/07/25
16:06 10:14
WBC 12.6 H 14.6 H
Lab Results - Chemistry
07/06/25 07/07/25
16:06 10:14
BUN 10 11
Creatinine 0.9 0.9
Estimated Creat Clear 93 90
Albumin 3.0 L
07/06/25 07/06/25 07/06/25
16:06 16:06 22:26
Lactic Acid 0.9 Cancelled < 0.5 L
Lab Results - Urine
07/06/25
16:46
Urine Nitrite (Reflex) Negative
Leukocyte Esterase Rfl Negative
Ur Squamous Epith Cells 3-5
Microbiology Results
07/06/25 22:53 Gram Stain - Preliminary
Fluid
07/06/25 22:53 Gram Stain - Preliminary
Fluid
07/06/25 16:46 Influenza Types A & B (PINKY) - Final
Nasal Swab Negative for Influenza A & B, NAAT
Negative results must be combined with clinical observations
and patient history.
Nucleic Acid Amplification test (NAAT)performed on the
[employer] platform.
[2025-07-07 15:26] LABS: Hepatitis C Antibody Negative (Negative)
[2025-07-08] MEDS: NSS 1000 IV ×2 (02:42→16:08)
[2025-07-08 03:08] VITALS: BP 135/79
[2025-07-08] MEDS: ZOSYN 50 IV ×4 (04:46→23:56)
[2025-07-08] MEDS: VANCOCIN 150 IV (06:04)
[2025-07-08 06:26] LABS: Hematocrit 23.5 % (39.0-52.0); Hemoglobin 7.7 g/dL (13.0-18.0); Mean Corp Hgb Conc. 32.8 g/dL (33.0-37.0); Mean Corpuscular Volume 94.8 fL (80.0-94.0); Platelet Count 390 10^3/uL (130-400); Red Cell Dist. Width 16.3 % (11.5-14.5)
[2025-07-08 06:37] LABS: ALT (SGPT) 28 U/L (0-50); AST (SGOT) 22 U/L (17-59); Albumin 2.7 g/dl (3.5-5.0); Alkaline Phosphatase 78 U/L (38-126); Blood Urea Nitrogen 9 mg/dl (9-20); Calcium 8.1 mg/dl (8.4-10.2); Carbon Dioxide 24 mmol/L (22-30); Chloride 104 mmol/L (98-107); Estimated Creatinine Clearance 90 ml/min; Glucose 101 mg/dl (70-99); Potassium 3.5 mmol/L (3.5-5.1); Sodium 132 mmol/L (135-145); Total Protein 5.5 g/dl (6.3-8.2); eGFR > 60.00
[2025-07-08 07:30] VITALS: BP 146/87
--- NOTE | 2025-07-08 08:20 | PHA.VAN.FU ---
Addendum entered and electronically signed by Valentina Barreto [facility] 07/08/25 08:32:
New regimen predicts AUC 438.
Original Note:
Vancomycin Assessment / Plan
- Assessment
Renal Function: Stable
WBC's are: Trending Down (14.6 -->11.1)
In the past 24 hrs, patient has been: Febrile (101.8F)
Concomitant Antimicrobials: Piperacillin/tazobactam
- Assessment - Therapeutic Drug Monitoring
Extrapolated Cmax (mcg/mL): 16.5
Peak level was drawn: Appropriately
Extrapolated Cmin (mcg/mL): 9.9
Trough Drawn: Appropriately
Levels were drawn: At steady state
Calculated AUC (mcg*h/mL): 311
Calculated ke: 0.0733
Calculated half life (H): 9.5
Calculated Vd (L): 98.62
Calculated Vanc CL (ml/min): 120.46
- Dosing Plan
Adjust Regimen to: Will give vancomycin 500mg x 1 now, then adjust to 1500mg IV Q12h.
- Monitoring Plan
No level(s) ordered at this time: Consider levels in the next few days.
- Follow Up
Pharmacy will continue to follow.
Vancomycin Follow UP
- -
Patient Age: 59
Patient Sex: Male
Vancomycin Day #: 3
Indication: Other
Requesting Provider: Jeffrey Burger PA-C
Height / Weight:
Height 5 ft 10 in
Actual Weight 94.064 kg
Pertinent Past Medical History: s/p hernia repair/bowel r/s Jun 25, prostate cancer s/p chemo and resection
- Vital Signs / Lab Results
Temp Pulse Resp BP Pulse Ox
98.5 F 92 20 146/87 97
07/08/25 07:30 07/08/25 07:30 07/08/25 07:30 07/08/25 07:30 07/08/25 07:30
Lab Results - Hematology
07/06/25 07/07/25 07/08/25
16:06 10:14 05:53
WBC 12.6 H 14.6 H 11.1 H
Lab Results - Chemistry
07/06/25 07/07/25 07/08/25
16:06 10:14 05:53
BUN 10 11 9
Creatinine 0.9 0.9 0.9
Estimated Creat Clear 93 90 90
Albumin 3.0 L 2.7 L
07/06/25 07/06/25 07/06/25
16: 16:06 22:26
Lactic Acid 0.9 Cancelled < 0.5 L
Microbiology Results
07/07/25 14:45 Influenza Type A (PCR) - Final
Nasalpharynx Not Detected
Influenza Type A (H1) (PCR) - Final
Not Detected
Influenza Type A (H3) (PCR) - Final
Not Detected
Influenza Type B (PCR) - Final
Not Detected
Resp Syncytial Virus Type A (PCR) - Final
Not Detected
Resp Syncytial Virus Type B (PCR) - Final
Not Detected
Adenovirus DNA (PCR) - Final
Not Detected
Human Metapneumovirus (PCR) - Final
Not Detected
Parainfluenza Virus Type 1 (PCR) - Final
Not Detected
Parainfluenza Virus Type 2 (PCR) - Final
Not Detected
Parainfluenza Virus Type 3 (PCR) - Final
Not Detected
Parainfluenza Virus Type 4 - Final
Not Detected
Rhinovirus (PCR) - Final
Not Detected
07/06/25 16:46 Blood Culture - Preliminary
Blood/Venous No Growth in 24 hours- Final report to follow
07/06/25 16:06 Blood Culture - Preliminary
Blood/Venous No Growth in 24 hours- Final report to follow
07/06/25 22:53 Gram Stain - Preliminary
Fluid
07/06/25 22:53 Gram Stain - Preliminary
Fluid
07/06/25 16:46 Influenza Types A & B (PINKY) - Final
Nasal Swab Negative for Influenza A & B, NAAT
Negative results must be combined with clinical observations
and patient history.
Nucleic Acid Amplification test (NAAT)performed on the
[employer] platform.
Therapeutic Drug Monitoring
Vancomycin Peak 14.0 ug/ml (18-26) L 07/08/25 01:12
Vancomycin Trough 9.8 ug/ml (5-20) 07/08/25 05:53
[2025-07-08] MEDS: TYLENOL 650 MG PO ×2 (09:30→20:19)
[2025-07-08] MEDS: VANCOCIN HCL 500 MG 100 IV (09:30)
[2025-07-08] MEDS: ELIQUIS 5 MG PO ×2 (09:30→20:19)
--- NOTE | 2025-07-08 09:30 | W.PN.ID1 ---
Date of Service
Date of Service: July 08, 2025
Today's Communication
- continue zosyn for now,
- discussed with patient that would not try to preempt the fevers with tylenol, rather use tylenol after fever occurs
- patient reports he's spoken with his surgeon Dr Guzman who indicated that he would accept him back in transfer, patient requesting transfer to [facility]; discussed with his hospitalist
Assessment / Plan
Fever without a source
S/p VHR 06/17/25 c/b hematoma with RTOR 06/21/25
- blood cultures x2 in progress no growth to date
- CXR without infiltrates
- CT a/p with IV contrast with suggestion of seroma/hematoma formation - a possible cause of fevers
- APOLLO drain with many GNR - difficult to interpret from old drain, could be colonization of the tube
- UA without pyuria
- covid and influenza screens negative
- resp viral panel negative, procalcitonin was negative
- MRSA screen negative
- continue zosyn for now,
- discussed with patient that would not try to preempt the fevers with tylenol, rather use tylenol after fever occurs
- patient reports he's spoken with his surgeon Dr Guzman who indicated that he would accept him back in transfer, patient requesting transfer to [facility]; discussed with his hospitalist
Chief Complaint
-: Fever
Subjective / Review of Systems
febrile overnight but key normalizing
BP overall stable
having frequent tylenol
abdomen more tender today
Vital Signs / Physical Exam
Vital Signs
Vital Signs
Temp Pulse Resp BP Pulse Ox
98.5 F 92 20 146/87 97
07/08/25 07:30 07/08/25 07:30 07/08/25 07:30 07/08/25 07:30 07/08/25 07:30
Physical Exam
Constitutional: No Acute Distress
Cardiovascular: Regular Rate and S1/S2; Negative Murmur or Rub
Pulmonary: Clear and Symmetric; Negative Wheezes or Rales
Gastrointestinal: Soft, Tender (with gentle palpation), Non Distended and Normal Bowel Sounds
Skin: Warm and Dry; Negative Rash or Jaundice
Wound: Other (surgical site well approixmated, no erythema warmth or drainage)
Lines: Other (drains x2 scant serosanguinous drainage)
Objective Data
Lab Data
Lab Results
07/08/25 05:53
07/08/25 05:53
PT 18.1 Sec (11.4-14.6) H 07/06/25 16:06
INR 1.49 07/06/25 16:06
Estimated Creat Clear 90 ml/min 07/08/25 05:53
Lactic Acid < 0.5 mmol/L (0.7-2.0) L 07/06/25 22:26
Total Bilirubin 0.7 mg/dl (0.2-1.3) 07/08/25 05:53
AST 22 U/L (17-59) 07/08/25 05:53
ALT 28 U/L (0-50) 07/08/25 05:53
Alkaline Phosphatase 78 U/L (38-126) 07/08/25 05:53
Most recent labs reviewed.
Micro Results:
07/07/25 20:13 Nasal Screen MRSA (PCR) - Final
Nose MRSA not detected - performed by PCR methodology.
07/08/25 05:53 Blood Parasites Smear - Preliminary
Blood/Venous
07/07/25 14:45 Influenza Type A (PCR) - Final
Nasalpharynx Not Detected
Influenza Type A (H1) (PCR) - Final
Not Detected
Influenza Type A (H3) (PCR) - Final
Not Detected
Influenza Type B (PCR) - Final
Not Detected
Resp Syncytial Virus Type A (PCR) - Final
Not Detected
Resp Syncytial Virus Type B (PCR) - Final
Not Detected
Adenovirus DNA (PCR) - Final
Not Detected
Human Metapneumovirus (PCR) - Final
Not Detected
Parainfluenza Virus Type 1 (PCR) - Final
Not Detected
Parainfluenza Virus Type 2 (PCR) - Final
Not Detected
Parainfluenza Virus Type 3 (PCR) - Final
Not Detected
Parainfluenza Virus Type 4 - Final
Not Detected
Rhinovirus (PCR) - Final
Not Detected
07/06/25 16:46 Blood Culture - Preliminary
Blood/Venous No Growth in 24 hours- Final report to follow
07/06/25 16:06 Blood Culture - Preliminary
Blood/Venous No Growth in 24 hours- Final report to follow
07/06/25 22:53 Body Fluid Culture - Pending
Fluid Gram Stain - Preliminary
07/06/25 22:53 Body Fluid Culture - Pending
Fluid Gram Stain - Preliminary
07/06/25 16:46 Influenza Types A & B (PINKY) - Final
Nasal Swab Negative for Influenza A & B, NAAT
Negative results must be combined with clinical observations
and patient history.
Nucleic Acid Amplification test (NAAT)performed on the
[employer] platform.
Care Review
Plan reviewed with: Physician (Dr Quinonez and Dr Basilio - patient requesting transfer)
[2025-07-08 11:09] VITALS: BP 132/80
--- NOTE | 2025-07-08 11:42 | W.PN.HOSP.TC ---
Today's Communication/Plan
-
see plan
Assessment / Plan
Assessment / Plan
Gen: NAD, AAOx3.
Eyes: EOMI, PERRLA, no scleral icterus.
Neck: supple.
CV: RRR, +S1/S2, no m/r/g.
Resp: CTAB, no rales, wheezes, or rhonchi.
Abd: +BS, soft, NT, ND. 2 APOLLO drains with scant serous drainage
Skin: No rashes.
Neuro: CN 2-12 intact, non-focal.
Psych: Normal mood and affect.
07/06/25 22:53 Fluid Body Fluid Culture - Preliminary
Gram negative bacilli
07/06/25 22:53 Fluid Gram Stain - Preliminary
07/06/25 22:53 Fluid Body Fluid Culture - Preliminary
No Growth After 18-24 Hours
07/06/25 22:53 Fluid Gram Stain - Preliminary
07/07/25 20:13 Nose Nasal Screen MRSA (PCR) - Final
MRSA not detected - performed by PCR methodology.
07/08/25 05:53 Blood/Venous Blood Parasites Smear - Preliminary
07/07/25 14:45 Nasalpharynx Influenza Type A (PCR) - Final
Not Detected
07/07/25 14:45 Nasalpharynx Influenza Type A (H1) (PCR) - Final
Not Detected
07/07/25 14:45 Nasalpharynx Influenza Type A (H3) (PCR) - Final
Not Detected
07/07/25 14:45 Nasalpharynx Influenza Type B (PCR) - Final
Not Detected
07/07/25 14:45 Nasalpharynx Resp Syncytial Virus Type A (PCR) - Final
Not Detected
07/07/25 14:45 Nasalpharynx Resp Syncytial Virus Type B (PCR) - Final
Not Detected
07/07/25 14:45 Nasalpharynx Adenovirus DNA (PCR) - Final
Not Detected
07/07/25 14:45 Nasalpharynx Human Metapneumovirus (PCR) - Final
Not Detected
07/07/25 14:45 Nasalpharynx Parainfluenza Virus Type 1 (PCR) - Final
Not Detected
07/07/25 14:45 Nasalpharynx Parainfluenza Virus Type 2 (PCR) - Final
Not Detected
07/07/25 14:45 Nasalpharynx Parainfluenza Virus Type 3 (PCR) - Final
Not Detected
07/07/25 14:45 Nasalpharynx Parainfluenza Virus Type 4 - Final
Not Detected
07/07/25 14:45 Nasalpharynx Rhinovirus (PCR) - Final
Not Detected
07/06/25 16:46 Blood/Venous Blood Culture - Preliminary
No Growth in 24 hours- Final report to follow
07/06/25 16:06 Blood/Venous Blood Culture - Preliminary
No Growth in 24 hours- Final report to follow
07/06/25 16:46 Nasal Swab Influenza Types A & B (PINKY) - Final
Negative for Influenza A & B, NAAT
Negative results must be combined with clinical observations
and patient history.
Nucleic Acid Amplification test (NAAT)performed on the
[employer] platform.
CT A/P 07/06:
1. There is heterogeneous thickening/expansion of the ventral abdominal wall soft tissues/rectus abdominis musculature, with a surgical drain in place. Mild overlying subcutaneous inflammatory change. Findings are most in keeping with postoperative
changes with seroma/hematoma formation within and just deep to the abdominal wall musculature. No intraperitoneal extension. No convincing evidence for abscess. No evidence for recurrent abdominal wall hernia.
2. Probable mild postoperative ileus.
3. Urinary bladder contains a small amount of intravesical gas anteriorly, possibly related to recent instrumentation (versus cystitis).
Possibly infected abdominal wall hematoma/seroma:
-recent ventral hernia repair with partial bowel resection (06/17) and hematoma evacuation (06/24) at [facility]
-presented with fever
-2 APOLLO drains with serosanguineous output prior, today serous drainage noted
-imaging above
-FCx with GNR (possibly colonization)
-cont Zosyn
-surgery and ID following (discussed with ID/surgery)
-leukocytosis improving
-follow fever curve
Other problems:
h/o ABLA: Hb stable, trend
RLE DVT (Jun 2025): cont Eliquis
Hyponatremia, mild
Prostate CA with localized recurrence: Holding prednisone and abiraterone as recommended by patient's primary oncologist. s/p Lupron injection 07/03.
FULL/Eliquis
Total time spent on today's encounter was 50 minutes which included time spent in counseling the patient/family regarding diagnosis and treatment plan as listed above, goals of care, and symptom management. Case was discussed with nursing staff,
specialists, and care coordinators/case management. All labs and imaging personally reviewed by me. Remainder the time spent in detailed review of previous records, lab data, imaging, and other medical provider documentation.
Anticipated Discharge: > 48 hours
Subjective/Interval History
-
Date of Service: July 08, 2025
No new complaints. Denies abd pain.
Objective Data
-
Labs:
Laboratory Results
07/08/25
05:53
WBC 11.1 H
Hgb 7.7 L
Hct 23.5 L
Plt Count 390
Sodium 132 L
Potassium 3.5
Chloride 104
Carbon Dioxide 24
BUN 9
Creatinine 0.9
Glucose 101 H
Calcium 8.1 L
Total Bilirubin 0.7
AST 22
ALT 28
Alkaline Phosphatase 78
Vital Signs:
Vital Signs
Temp Pulse Resp BP Pulse Ox
98.8 F 90 16 132/80 98
07/08/25 11:09 07/08/25 11:09 07/08/25 11:09 07/08/25 11:09 07/08/25 11:09
I&O
07/07/25 07/08/25 07/09/25
06:59 06:59 06:59
Intake Total 1230 / 1230 1630 / 1630
Output Total 645 / 645 813 / 813
Balance 585 / 585 817 / 817
--- NOTE | 2025-07-08 13:06 | W.PN.GS2 ---
Addendum entered and electronically signed by Anthony Basilio MD 07/08/25 13:55:
Discussed case with both his general surgeon and plastic surgeon at [place]. This was a retrorectus hernia repair (there was no TAR component). There was about a 1-1/2 L hematoma that was evacuated on 06/21/2025 but there was no evidence of infection
or concern during his hospital course there.
Will remove his right APOLLO today and remove his midline sutures.
Will plan to remove his left APOLLO drain tomorrow. Low suspicion that that +culture is clinically relevant.
Continue broad-spectrum antibiotics.
General surgery will continue to follow
Addendum entered and electronically signed by Anthony Basilio MD 07/08/25 13:39:
I saw and examined the patient independently.
The Director Machine's note was reviewed and I agree with the note, assessment and plan except where noted below.
Comment: This is a 59-year-old male with history of prostate cancer status post prostatectomy, DVTs, recurrent incisional hernias status post complex open ventral incisional hernia repair with mesh 06/17 (patient describes what sounds like a
retrorectus/TAR repair) with both general surgery and plastic surgery complicated by a DVT started on heparin and then subsequently developed a hematoma requiring a return to the OR for washout on 06/21/2025. He presents to our hospital with fever
of unknown origin. So far workup has been largely negative. His left APOLLO drain which appears to be in the subcutaneous space is growing out GNB but this may be simply colonization of the drain. His exam is unremarkable and the drain outputs are
serosanguineous.
His CT scan does show residual collection in the midline which is his presumed source of fevers though there is no obvious signs of infection
Will reach out to the general surgery/plastic surgery team at [place].
His midline sutures should be removed in the next day or so.
General surgery will follow, reasonable to transfer but no immediate medical necessity at this time
Original Note:
Today's Communication / Plan
-
C/W ABX, follow cultures
Assessment / Plan
-
59 yo male with a h/o prostate cancer status post prostatectomy now on Zytiga (with prednisone) and Lupron and DVT's (UE and LE) with recurrent incisional hernia repairs x2 around 2016 with recurrence, recent VIHR with SBR at [facility] on 06/17 by
plastics ([place]) and general ([place]) surgery c/b DVT with development of hematoma on AC and RTOR on 06/21 for management. APOLLO x2 left in place and pt discharged to home on Eliquis on 07/02 now presenting with fevers and fatigue.
CT shows abdominal wall hematoma/seroma which could be possible source. Both JPs with SS output. The left sided APOLLO appears to be located in the SQ space on CT imaging, with cx of GNB, unclear if this is a contaminant given the age of the drain. NO
purulence present. Incision healing well. Benign abdominal exam. VSS. Last fever was at 2325 of 101.8. Blood cx with NGTD. Respiratory cx's including flu are negative. UA neg. CXR without PNA.
Plan:
Continue IV ABX as per ID
Continue Eliquis in management of acute DVT
Continue regular diet
Bowel regimen prn
OOB/Ambulate
Will reach out to patient's primary surgical team at [facility] to discuss case/recommendations
Subjective Data
-
Date of Service: July 08, 2025
Pt seen and examined at bedside with Dr. Basilio. Denies n/v. Occasional discomfort to abdomen but no pain. Denies sob.
Objective Data
-
Intake and Output
07/07/25 07/08/25 07/09/25
06:59 06:59 06:59
Intake Total 1230 / 1230 1630 / 1630
Output Total 645 / 645 813 / 813
Balance 585 / 585 817 / 817
Intake:
Oral fluids 480 / 480
IV fluids (Total) 500 / 500 750 / 750
IV piggybacks 730 / 730 400 / 400
Output:
Drain Output (Total)
Left Lower Abdomen
Right Lower Abdomen
Urine, Voided 625 / 625 800 / 800
Other:
Number of approximated MODERATE 1
amounts of urine
Vital Signs
Temp Pulse Resp BP Pulse Ox
98.8 F 90 16 132/80 98
07/08/25 11:09 07/08/25 11:09 07/08/25 11:09 07/08/25 11:09 07/08/25 11:09
Lab Results
07/08/25 05:53
07/08/25 05:53
Calcium 8.1 mg/dl (8.4-10.2) L 07/08/25 05:53
Total Bilirubin 0.7 mg/dl (0.2-1.3) 07/08/25 05:53
AST 22 U/L (17-59) 07/08/25 05:53
ALT 28 U/L (0-50) 07/08/25 05:53
Alkaline Phosphatase 78 U/L (38-126) 07/08/25 05:53
Total Protein 5.5 g/dl (6.3-8.2) L 07/08/25 05:53
Albumin 2.7 g/dl (3.5-5.0) L 07/08/25 05:53
Physical Exam
-
NAD
ABD soft, nd, nt
Midline incision with nylon sutures present, well healed without erythema
APOLLO drains to bilateral lower abdomen both with SSF
[2025-07-08 15:24] VITALS: BP 116/72
[2025-07-08 19:19] VITALS: BP 159/93
[2025-07-08 23:41] VITALS: BP 127/75
[2025-07-09] MEDS: TYLENOL 650 MG PO ×2 (02:07→19:48)
[2025-07-09] MEDS: NSS 1000 IV (02:12)
[2025-07-09 03:03] VITALS: BP 142/69
[2025-07-09] MEDS: ZOSYN 50 IV ×4 (05:34→23:13)
[2025-07-09 07:30] VITALS: BP 132/82
[2025-07-09] MEDS: ELIQUIS 5 MG PO ×2 (08:35→19:48)
--- NOTE | 2025-07-09 09:07 | W.PN.ID1 ---
Date of Service
Date of Service: July 09, 2025
Today's Communication
- continue zosyn for today, tomorrow start augmentin to complete a 2 week total course 07/06-07/19
- follow up with his surgery team
Assessment / Plan
Fever without a definite source
S/p VHR 06/17/25 c/b hematoma with RTOR 06/21/25
- blood cultures x2 in progress no growth to date
- CT a/p with IV contrast with suggestion of seroma/hematoma formation - a possible cause of fevers
- APOLLO drain with many E coli - difficult to interpret from old drain, could be colonization of the tube
- continue zosyn for today, tomorrow start augmentin to complete a 2 week total course 07/06-07/19
- follow up with his surgery team
Chief Complaint
-: Fever
Subjective / Review of Systems
last fever last night at 7:20 pm
tylenol 650mg yesterday 9:30 am, 8pm and 2 AM
BP overall stable
HR stable
no specific events overnight
malaise ongoing
Vital Signs / Physical Exam
Vital Signs
Vital Signs
Temp Pulse Resp BP Pulse Ox
98.8 F 86 16 132/82 98
07/09/25 07:30 07/09/25 07:30 07/09/25 07:30 07/09/25 07:30 07/09/25 07:30
Physical Exam
Constitutional: No Acute Distress
Cardiovascular: Regular Rate and S1/S2; Negative Murmur or Rub
Pulmonary: Clear and Symmetric; Negative Wheezes or Rales
Gastrointestinal: Soft, Tender (diffuse tenderness), Non Distended and Normal Bowel Sounds
Skin: Warm and Dry; Negative Rash or Jaundice
Wound: Other (surgical site well approximated no erythema, warmth, dehiscence or drainage)
Lines: Other (drain on the left - scan serosanguinous fluid)
Objective Data
Lab Data
PT 18.1 Sec (11.4-14.6) H 07/06/25 16:06
INR 1.49 07/06/25 16:06
Estimated Creat Clear 90 ml/min 07/08/25 05:53
Lactic Acid < 0.5 mmol/L (0.7-2.0) L 07/06/25 22:26
Total Bilirubin 0.7 mg/dl (0.2-1.3) 07/08/25 05:53
AST 22 U/L (17-59) 07/08/25 05:53
ALT 28 U/L (0-50) 07/08/25 05:53
Alkaline Phosphatase 78 U/L (38-126) 07/08/25 05:53
Most recent labs reviewed.
Micro Results:
07/06/25 22:53 Body Fluid Culture - Final
Fluid Escherichia coli
Gram Stain - Final
07/06/25 16:46 Blood Culture - Preliminary
Blood/Venous No Growth in 48 hours- Final report to follow
07/06/25 16:06 Blood Culture - Preliminary
Blood/Venous No Growth in 48 hours- Final report to follow
07/08/25 05:53 Blood Parasites Smear - Final
Blood/Venous
07/06/25 22:53 Body Fluid Culture - Preliminary
Fluid No Growth After 18-24 Hours
Gram Stain - Preliminary
07/07/25 20:13 Nasal Screen MRSA (PCR) - Final
Nose MRSA not detected - performed by PCR methodology.
07/07/25 14:45 Influenza Type A (PCR) - Final
Nasalpharynx Not Detected
Influenza Type A (H1) (PCR) - Final
Not Detected
Influenza Type A (H3) (PCR) - Final
Not Detected
Influenza Type B (PCR) - Final
Not Detected
Resp Syncytial Virus Type A (PCR) - Final
Not Detected
Resp Syncytial Virus Type B (PCR) - Final
Not Detected
Adenovirus DNA (PCR) - Final
Not Detected
Human Metapneumovirus (PCR) - Final
Not Detected
Parainfluenza Virus Type 1 (PCR) - Final
Not Detected
Parainfluenza Virus Type 2 (PCR) - Final
Not Detected
Parainfluenza Virus Type 3 (PCR) - Final
Not Detected
Parainfluenza Virus Type 4 - Final
Not Detected
Rhinovirus (PCR) - Final
Not Detected
07/06/25 16:46 Influenza Types A & B (PINKY) - Final
Nasal Swab Negative for Influenza A & B, NAAT
Negative results must be combined with clinical observations
and patient history.
Nucleic Acid Amplification test (NAAT)performed on the
[employer] platform.
Fluid Cult/not urine Final 07/09/25-828
Many Escherichia coli
Many Diptheroids
Organism 1 Escherichia coli
1. Escherichia coli
M.I.C. RX
--------- ---
Amoxicillin/Potas. Clavulanate <=8/4 S
Ampicillin >16 R
Ampicillin/Sulbactam 16/8 I
Aztreonam <=4 S
Cefazolin 4 I
Cefepime <=2 S
Ceftazidime <=1 S
Ceftriaxone <=1 S
Ertapenem <=0.5 S
Ciprofloxacin >2 R
Gentamicin <=2 S
Meropenem <=1 S
Piperacillin/Tazobactam <=8 S
Tetracycline >8 R
Tobramycin <=2 S
Trimethoprim/Sulfamethoxazole >2/38 R
[2025-07-09 09:28] LABS: Hematocrit 21.5 % (39.0-52.0); Hemoglobin 7.3 g/dL (13.0-18.0); Mean Corp Hgb Conc. 34.0 g/dL (33.0-37.0); Mean Corpuscular Volume 91.9 fL (80.0-94.0); Platelet Count 357 10^3/uL (130-400); Red Cell Dist. Width 16.0 % (11.5-14.5)
--- NOTE | 2025-07-09 09:33 | W.PN.HOSP.TC ---
Addendum entered and electronically signed by Sher Quinonez MD 07/09/25 12:51:
Hypokalemia
Original Note:
Today's Communication/Plan
-
see plan
Assessment / Plan
Assessment / Plan
Gen: NAD, AAOx3.
Eyes: EOMI, PERRLA, no scleral icterus.
Neck: supple.
CV: remains RRR, +S1/S2, no m/r/g.
Resp: CTAB anteriorly, no rales, wheezes, or rhonchi.
Abd: +BS, soft, mild TTP, ND.
Skin: No rashes.
Neuro: CN 2-12 intact, non-focal.
Psych: Normal mood and affect.
07/06/25 22:53 Fluid Body Fluid Culture - Final
Escherichia coli
07/06/25 22:53 Fluid Gram Stain - Final
07/06/25 16:46 Blood/Venous Blood Culture - Preliminary
No Growth in 48 hours- Final report to follow
07/06/25 16:06 Blood/Venous Blood Culture - Preliminary
No Growth in 48 hours- Final report to follow
07/08/25 05:53 Blood/Venous Blood Parasites Smear - Final
07/06/25 22:53 Fluid Body Fluid Culture - Preliminary
No Growth After 18-24 Hours
07/06/25 22:53 Fluid Gram Stain - Preliminary
07/07/25 20:13 Nose Nasal Screen MRSA (PCR) - Final
MRSA not detected - performed by PCR methodology.
07/07/25 14:45 Nasalpharynx Influenza Type A (PCR) - Final
Not Detected
07/07/25 14:45 Nasalpharynx Influenza Type A (H1) (PCR) - Final
Not Detected
07/07/25 14:45 Nasalpharynx Influenza Type A (H3) (PCR) - Final
Not Detected
07/07/25 14:45 Nasalpharynx Influenza Type B (PCR) - Final
Not Detected
07/07/25 14:45 Nasalpharynx Resp Syncytial Virus Type A (PCR) - Final
Not Detected
07/07/25 14:45 Nasalpharynx Resp Syncytial Virus Type B (PCR) - Final
Not Detected
07/07/25 14:45 Nasalpharynx Adenovirus DNA (PCR) - Final
Not Detected
07/07/25 14:45 Nasalpharynx Human Metapneumovirus (PCR) - Final
Not Detected
07/07/25 14:45 Nasalpharynx Parainfluenza Virus Type 1 (PCR) - Final
Not Detected
07/07/25 14:45 Nasalpharynx Parainfluenza Virus Type 2 (PCR) - Final
Not Detected
07/07/25 14:45 Nasalpharynx Parainfluenza Virus Type 3 (PCR) - Final
Not Detected
07/07/25 14:45 Nasalpharynx Parainfluenza Virus Type 4 - Final
Not Detected
07/07/25 14:45 Nasalpharynx Rhinovirus (PCR) - Final
Not Detected
07/06/25 16:46 Nasal Swab Influenza Types A & B (PINKY) - Final
Negative for Influenza A & B, NAAT
Negative results must be combined with clinical observations
and patient history.
Nucleic Acid Amplification test (NAAT)performed on the
[employer] platform.
CT A/P 07/06:
1. There is heterogeneous thickening/expansion of the ventral abdominal wall soft tissues/rectus abdominis musculature, with a surgical drain in place. Mild overlying subcutaneous inflammatory change. Findings are most in keeping with postoperative
changes with seroma/hematoma formation within and just deep to the abdominal wall musculature. No intraperitoneal extension. No convincing evidence for abscess. No evidence for recurrent abdominal wall hernia.
2. Probable mild postoperative ileus.
3. Urinary bladder contains a small amount of intravesical gas anteriorly, possibly related to recent instrumentation (versus cystitis).
Possibly infected abdominal wall hematoma/seroma:
-recent ventral hernia repair with partial bowel resection (06/17) and hematoma evacuation (06/24) at [facility]
-presented with fever
-2 APOLLO drains with serosanguineous output prior, today serous drainage noted
-imaging above
-FCx with E coli
-cont Zosyn
-surgery following, no surgical intervention indicated at this time
-ID following, discussed with ID
-leukocytosis resolved
-follow fever curve (improving overall)
Other problems:
h/o ABLA: Hb stable, trend, transfuse for Hb < 7
RLE DVT (Jun 2025): cont Eliquis
Hyponatremia, mild
Prostate CA with localized recurrence: Holding prednisone and abiraterone as recommended by patient's primary oncologist. s/p Lupron injection 07/03.
FULL/Eliquis
Anticipated Discharge: Within 24 hours
Subjective/Interval History
-
Date of Service: July 09, 2025
No new issues.
Objective Data
-
Labs:
Laboratory Results
07/09/25
09:17
WBC 5.6
Hgb 7.3 L
Hct 21.5 L
Plt Count 357
Sodium Pending
Potassium Pending
Chloride Pending
Carbon Dioxide Pending
BUN Pending
Creatinine Pending
Glucose Pending
Calcium Pending
Total Bilirubin Pending
AST Pending
ALT Pending
Alkaline Phosphatase Pending
Vital Signs:
Vital Signs
Temp Pulse Resp BP Pulse Ox
98.8 F 86 16 132/82 98
07/09/25 07:30 07/09/25 07:30 07/09/25 07:30 07/09/25 07:30 07/09/25 07:30
I&O
07/08/25 07/09/2525
06:59 06:59 06:59
Intake Total 1630 / 1630 840 / 840
Output Total 813 / 813 1600 / 1600
Balance 817 / 817 -760 / -760
[2025-07-09 11:18] LABS: ALT (SGPT) 26 U/L (0-50); AST (SGOT) 27 U/L (17-59); Albumin 2.6 g/dl (3.5-5.0); Alkaline Phosphatase 71 U/L (38-126); Blood Urea Nitrogen 5 mg/dl (9-20); Calcium 8.0 mg/dl (8.4-10.2); Carbon Dioxide 24 mmol/L (22-30); Chloride 104 mmol/L (98-107); Estimated Creatinine Clearance 101 ml/min; Glucose 104 mg/dl (70-99); Potassium 3.3 mmol/L (3.5-5.1); Sodium 131 mmol/L (135-145); Total Protein 5.3 g/dl (6.3-8.2); eGFR > 60.00
[2025-07-09 11:30] VITALS: BP 141/88
--- NOTE | 2025-07-09 12:20 | W.PN.GS2 ---
Today's Communication / Plan
-
-- Removal of remaning APOLLO
-- Continue IV ABX as per ID
Assessment / Plan
-
59 yo male with a h/o prostate cancer status post prostatectomy now on Zytiga (with prednisone) and Lupron and DVT's (UE and LE) with recurrent incisional hernia repairs x2 around 2015 with recurrence, recent VIHR with SBR at [facility] on 06/17 by
plastics ([facility]) and general ([facility]) surgery c/b DVT with development of hematoma on AC and RTOR on 06/21 for management. APOLLO x2 left in place and pt discharged to home on Eliquis on 07/02 now presenting with fevers and fatigue.
CT shows abdominal wall hematoma/seroma which could be possible source. Both JPs with SS output. The left sided APOLLO appears to be located in the SQ space on CT imaging, with cx of GNB, unclear if this is a contaminant given the age of the drain. NO
purulence present. Incision healing well. Benign abdominal exam.
Febrile yesterday afternoon, none today, VSS
Labs with normalized WBC, HB drift (dilutional and acute blood loss from prior procedures), hyponatremia, hypokalemia
Clinically stable. APOLLO with minimal outputs, and character likely represents slowly liquefying hematoma. No purulence or clearly bilious or enteric content drainage. Plan for removal at bedside. Continue with antibiotic treatment. WBC notably
normalized. Will discharge with outpatient antibiotics when afebrile for 24 hours with outpatient follow-up with his surgeon.
Plan:
-- Removal of remaning APOLLO
-- Continue IV ABX as per ID
-- Continue Eliquis in management of acute DVT
-- Continue regular diet
-- Bowel regimen prn
-- OOB/Ambulate
Subjective Data
-
Date of Service: July 09, 2025
Reports feeling slightly feverish and chills yesterday afternoon and overnight. None currently. Denies any worsening abdominal pain. No nausea or vomiting. Passing flatus and stools. Denies any urinary or upper respiratory symptoms. Denies any
chest pain or shortness of breath.
Objective Data
-
Intake and Output
07/08/25 07/09/25 07/10/25
06:59 06:59 06:59
Intake Total 1630 / 1630 840 / 840
Output Total 813 / 813 1600 / 1600
Balance 817 / 817 -760 / -760
Intake:
Oral fluids 480 / 480 840 / 840
IV fluids (Total) 750 / 750
IV piggybacks 400 / 400
Output:
Drain Output (Total)
Left Lower Abdomen 8 / 8
Right Lower Abdomen 5 / 5
Urine, Voided 800 / 800 1600 / 1600
Other:
Number of approximated MODERATE 1 1
amounts of urine
Vital Signs
Temp Pulse Resp BP Pulse Ox
98.9 F 92 16 141/88 98
07/09/25 11:30 07/09/25 11:30 07/09/25 11:30 07/09/25 11:30 07/09/25 11:30
Lab Results
07/09/25 09:17
07/09/25 09:17
Calcium 8.0 mg/dl (8.4-10.2) L 07/09/25 09:17
Total Bilirubin 0.5 mg/dl (0.2-1.3) 07/09/25 09:17
AST 27 U/L (17-59) 07/09/25 09:17
ALT 26 U/L (0-50) 07/09/25 09:17
Alkaline Phosphatase 71 U/L (38-126) 07/09/25 09:17
Total Protein 5.3 g/dl (6.3-8.2) L 07/09/25 09:17
Albumin 2.6 g/dl (3.5-5.0) L 07/09/25 09:17
Physical Exam
-
Gen: NAD
Abd: soft, mild tenderness, ND, non-peritoneal, APOLLO with minimal thin serous/brownish fluid
Patient has a alejandre catheter: No
Patient has a central line: No
--- NOTE | 2025-07-09 13:27 | CM ---
Addendum entered by Oscar Orr 07/10/25 15:22:
Transfer to [facility] today
Original Note:
Chart reviewed.
Per ID, cont IV abx, will transition to po tomorrow
Per hospitalist, plan to d/c patient tomorrow
No CM needs at this time
Plan: Home, no needs
[2025-07-09] MEDS: KCL 40 MEQ PO (13:55)
[2025-07-09 15:30] VITALS: BP 136/75
[2025-07-09 19:17] VITALS: BP 146/87
[2025-07-09] MEDS: ZOFRAN 4 MG IV (23:13)
[2025-07-09 23:26] VITALS: BP 129/80
[2025-07-10 03:03] VITALS: BP 143/88
[2025-07-10 07:10] VITALS: BP 142/84
[2025-07-10 07:56] LABS: Hematocrit 21.3 % (39.0-52.0); Hemoglobin 7.2 g/dL (13.0-18.0); Mean Corp Hgb Conc. 33.8 g/dL (33.0-37.0); Mean Corpuscular Volume 93.4 fL (80.0-94.0); Platelet Count 361 10^3/uL (130-400); Red Cell Dist. Width 15.9 % (11.5-14.5)
[2025-07-10] MEDS: ELIQUIS 5 MG PO (08:19)
[2025-07-10] MEDS: AUGMENTIN 875 MG/125 MG 1 TABLET PO (08:19)
[2025-07-10] MEDS: TYLENOL 650 MG PO ×2 (08:27→12:30)
[2025-07-10 08:32] LABS: ALT (SGPT) 26 U/L (0-50); AST (SGOT) 28 U/L (17-59); Albumin 2.6 g/dl (3.5-5.0); Alkaline Phosphatase 72 U/L (38-126); Blood Urea Nitrogen 4 mg/dl (9-20); Calcium 8.4 mg/dl (8.4-10.2); Carbon Dioxide 27 mmol/L (22-30); Chloride 104 mmol/L (98-107); Estimated Creatinine Clearance 101 ml/min; Glucose 99 mg/dl (70-99); Potassium 3.8 mmol/L (3.5-5.1); Sodium 132 mmol/L (135-145); Total Protein 5.3 g/dl (6.3-8.2); eGFR > 60.00
--- NOTE | 2025-07-10 09:24 | W.PN.HOSP.TC ---
Addendum entered and electronically signed by Sher Quinonez MD 07/11/25 10:20:
Infected hematoma is a complication of the surgery
Addendum entered and electronically signed by Sher Quinonez MD 07/10/25 13:16:
Patient accepted at [facility] under the service of Dr. Bg Umanzor (surgery), d/c order placed.
Total time spent on d/c = 48 min. This included today's physical exam, progress note, review of laboratory and diagnostic data, preparation of discharge documents and prescriptions, and discussions about the pt's hospital course and discharge plan
with the patient and other medical doctor md involved in the patient's care.
Original Note:
Today's Communication/Plan
-
see plan
Assessment / Plan
Assessment / Plan
Gen: NAD, AAOx3.
Eyes: EOMI, PERRLA, no scleral icterus.
Neck: supple.
CV: continues to remain RRR, +S1/S2, no m/r/g.
Resp: remains CTAB anteriorly, no rales, wheezes, or rhonchi.
Abd: +BS, soft, NT to light palpation, ND.
Skin: No rashes.
Neuro: CN 2-12 intact, non-focal.
Psych: Normal mood and affect.
07/06/25 16:46 Blood/Venous Blood Culture - Preliminary
No Growth in 72 hours- Final report to follow
07/06/25 16:06 Blood/Venous Blood Culture - Preliminary
No Growth in 72 hours- Final report to follow
07/06/25 22:53 Fluid Body Fluid Culture - Preliminary
No Growth After 48 Hours
07/06/25 22:53 Fluid Gram Stain - Preliminary
07/06/25 22:53 Fluid Body Fluid Culture - Final
Escherichia coli
07/06/25 22:53 Fluid Gram Stain - Final
07/08/25 05:53 Blood/Venous Blood Parasites Smear - Final
07/07/25 20:13 Nose Nasal Screen MRSA (PCR) - Final
MRSA not detected - performed by PCR methodology.
07/07/25 14:45 Nasalpharynx Influenza Type A (PCR) - Final
Not Detected
07/07/25 14:45 Nasalpharynx Influenza Type A (H1) (PCR) - Final
Not Detected
07/07/25 14:45 Nasalpharynx Influenza Type A (H3) (PCR) - Final
Not Detected
07/07/25 14:45 Nasalpharynx Influenza Type B (PCR) - Final
Not Detected
07/07/25 14:45 Nasalpharynx Resp Syncytial Virus Type A (PCR) - Final
Not Detected
07/07/25 14:45 Nasalpharynx Resp Syncytial Virus Type B (PCR) - Final
Not Detected
07/07/25 14:45 Nasalpharynx Adenovirus DNA (PCR) - Final
Not Detected
07/07/25 14:45 Nasalpharynx Human Metapneumovirus (PCR) - Final
Not Detected
07/07/25 14:45 Nasalpharynx Parainfluenza Virus Type 1 (PCR) - Final
Not Detected
07/07/25 14:45 Nasalpharynx Parainfluenza Virus Type 2 (PCR) - Final
Not Detected
07/07/25 14:45 Nasalpharynx Parainfluenza Virus Type 3 (PCR) - Final
Not Detected
07/07/25 14:45 Nasalpharynx Parainfluenza Virus Type 4 - Final
Not Detected
07/07/25 14:45 Nasalpharynx Rhinovirus (PCR) - Final
Not Detected
07/06/25 16:46 Nasal Swab Influenza Types A & B (PINKY) - Final
Negative for Influenza A & B, NAAT
Negative results must be combined with clinical observations
and patient history.
Nucleic Acid Amplification test (NAAT)performed on the
[employer] platform.
CT A/P 07/06:
1. There is heterogeneous thickening/expansion of the ventral abdominal wall soft tissues/rectus abdominis musculature, with a surgical drain in place. Mild overlying subcutaneous inflammatory change. Findings are most in keeping with postoperative
changes with seroma/hematoma formation within and just deep to the abdominal wall musculature. No intraperitoneal extension. No convincing evidence for abscess. No evidence for recurrent abdominal wall hernia.
2. Probable mild postoperative ileus.
3. Urinary bladder contains a small amount of intravesical gas anteriorly, possibly related to recent instrumentation (versus cystitis).
Possibly infected abdominal wall hematoma/seroma:
-recent ventral hernia repair with partial bowel resection (06/17) and hematoma evacuation (06/24) at [facility]
-presented with fever
-2 APOLLO drains with serosanguineous output prior, both drains now removed by surgery
-imaging above
-FCx with E coli
-was on Zosyn, now transitioned to Augmentin through 07/19/25
-surgery following, CT A/P with IV contrast ordered, discussed with Dr. Alba
-ID following
-leukocytosis resolved
-follow fever curve (improving overall). Note, fever could be due to hematoma.
Other problems:
h/o ABLA: Hb stable, trend, transfuse for Hb < 7
RLE DVT (Jun 2025): cont Eliquis, Hb stable
Hyponatremia, mild
Prostate CA with localized recurrence: Holding prednisone and abiraterone as recommended by patient's primary oncologist. s/p Lupron injection 07/03.
FULL/Eliquis
Total time spent on today's encounter was 50 minutes which included time spent in counseling the patient/family regarding diagnosis and treatment plan as listed above, goals of care, and symptom management. Case was discussed with nursing staff,
specialists, and care coordinators/case management. All labs and imaging personally reviewed by me. Remainder the time spent in detailed review of previous records, lab data, imaging, and other medical provider documentation.
Anticipated Discharge: Today
Subjective/Interval History
-
Date of Service: July 10, 2025
No new complaints.
Objective Data
-
Labs:
Laboratory Results
07/10/25
07:33
WBC 5.0
Hgb 7.2 L
Hct 21.3 L
Plt Count 361
Sodium 132 L
Potassium 3.8
Chloride 104
Carbon Dioxide 27
BUN 4 L
Creatinine 0.8
Glucose 99
Calcium 8.4
Total Bilirubin 0.4
AST 28
ALT 26
Alkaline Phosphatase 72
Vital Signs:
Vital Signs
Temp Pulse Resp BP Pulse Ox
99.7 F 90 18 142/84 98
07/10/25 07:10 07/10/25 07:10 07/10/25 07:10 07/10/25 07:10 07/10/25 07:10
I&O
07/09/25 07/10/25 07/11/25
06:59 06:59 06:59
Intake Total 840 / 840 1390 / 1390
Output Total 1600 / 1600 2425 / 2425
Balance -760 / -760 -1035 / -1035
--- NOTE | 2025-07-10 10:14 | W.PN.GS2 ---
Addendum entered and electronically signed by Ottoniel Alba MD 07/11/25 11:27:
CDI query: infected hematoma vs less likely fistula
Addendum entered and electronically signed by Ottoniel Alba MD 07/10/25 13:13:
Pt updated with plan at bedside. He is in agreement
Addendum entered and electronically signed by Ottoniel Alba MD 07/10/25 13:12:
CT reviewed, new gas within collection is noted. Concern for infected hematoma. Transfer to [facility] initiated. Accepting surgeon Bg Umanzor.
Original Note:
Today's Communication / Plan
-
CT
Assessment / Plan
-
59 yo male with a h/o prostate cancer status post prostatectomy now on Zytiga (with prednisone) and Lupron and DVT's (UE and LE) with recurrent incisional hernia repairs x2 around 2015 with recurrence, recent VIHR with SBR at [facility] on 06/17 by
plastics ([facility]) and general ([facility]) surgery c/b DVT with development of hematoma on AC and RTOR on 06/21 for management. APOLLO x2 left in place and pt discharged to home on Eliquis on 07/02 now presenting with fevers and fatigue.
CT shows abdominal wall hematoma/seroma which could be possible source. Both JPs with SS output. The left sided APOLLO appears to be located in the SQ space on CT imaging, with cx of GNB, unclear if this is a contaminant given the age of the drain. NO
purulence present. Incision healing well. Benign abdominal exam.
Febrile yesterday afternoon, none today, VSS
Labs with normalized WBC, HB drift (dilutional and acute blood loss from prior procedures), hyponatremia, hypokalemia
Clinically stable. APOLLO with minimal outputs, and character likely represents slowly liquefying hematoma. No purulence or clearly bilious or enteric content drainage. Plan for removal at bedside. Continue with antibiotic treatment. WBC notably
normalized. Will discharge with outpatient antibiotics when afebrile for 24 hours with outpatient follow-up with his surgeon.
Plan:
-- Rpt CT today
-- Continue IV ABX as per ID
-- Continue Eliquis in management of acute DVT
-- Continue regular diet
-- Bowel regimen prn
-- OOB/Ambulate
Subjective Data
-
Date of Service: July 10, 2025
Tmax 101.7F, tolerating diet, pain controlled
Objective Data
-
Intake and Output
07/09/25 07/10/25 07/11/25
06:59 06:59 06:59
Intake Total 840 / 840 1390 / 1390
Output Total 1600 / 1600 2425 / 2425
Balance -760 / -760 -1035 / -1035
Intake:
Oral fluids 840 / 840 840 / 840
IV fluids (Total) 450 / 450
IV piggybacks 100 / 100
Output:
Urine, Voided 1600 / 1600 2425 / 2425
Other:
Number of approximated MODERATE 1
amounts of urine
Vital Signs
Temp Pulse Resp BP Pulse Ox
99.7 F 90 18 142/84 98
07/10/25 07:10 07/10/25 07:10 07/10/25 07:10 07/10/25 07:10 07/10/25 07:10
Lab Results
07/10/25 07:33
07/10/25 07:33
Calcium 8.4 mg/dl (8.4-10.2) 07/10/25 07:33
Total Bilirubin 0.4 mg/dl (0.2-1.3) 07/10/25 07:33
AST 28 U/L (17-59) 07/10/25 07:33
ALT 26 U/L (0-50) 07/10/25 07:33
Alkaline Phosphatase 72 U/L (38-126) 07/10/25 07:33
Total Protein 5.3 g/dl (6.3-8.2) L 07/10/25 07:33
Albumin 2.6 g/dl (3.5-5.0) L 07/10/25 07:33
Physical Exam
-
Gen: NAD
Abd: soft, somewhat firm swelling of the ab wall with calor, mild ttp nonfocal
Patient has a alejandre catheter: No
Patient has a central line: No
[2025-07-10 12:02] VITALS: BP 140/86
--- NOTE | 2025-07-10 12:51 | W.PN.ID1 ---
Date of Service
Date of Service: July 10, 2025
Today's Communication
- repeat CT a/p with IV contrast - larger and now with gas within the collection - more likely infected collection
- restart zosyn; fever curve, wbc count have improved, if further fevers will consider broadening coverage
- agree with plans for transfer back to his surgical team at [facility]
Assessment / Plan
Fever without a definite source
S/p VHR 06/17/25 c/b hematoma with RTOR 06/21/25
- blood cultures x2 in progress no growth to date
- old drain culture E coli - unclear if colonization or not
- repeat CT a/p with IV contrast - larger and now with gas within the collection - more likely infected collection
- restart zosyn; fever curve, wbc count have improved, if further fevers will consider broadening coverage
- agree with plans for transfer back to his surgical team at [facility]
Chief Complaint
-: Fever
Subjective / Review of Systems
febrile to 101.7 overnight
bp stable
no other events overnight
Vital Signs / Physical Exam
Vital Signs
Vital Signs
Temp Pulse Resp BP Pulse Ox
98.2 F 86 18 140/86 99
07/10/25 12:02 07/10/25 12:02 07/10/25 12:02 07/10/25 12:02 07/10/25 12:02
Physical Exam
Constitutional: No Acute Distress
Cardiovascular: Regular Rate and S1/S2; Negative Murmur or Rub
Pulmonary: Clear and Symmetric; Negative Wheezes or Rales
Gastrointestinal: Soft, Tender (mainly over the previous drain sites), Non Distended and Normal Bowel Sounds
Skin: Warm and Dry; Negative Rash or Jaundice
Lines: Other (previous HD drain sites with scan output)
Objective Data
Lab Data
Lab Results
07/10/25 07:33
07/10/25 07:33
PT 18.1 Sec (11.4-14.6) H 07/06/25 16:06
INR 1.49 07/06/25 16:06
Estimated Creat Clear 101 ml/min 07/10/25 07:33
Lactic Acid < 0.5 mmol/L (0.7-2.0) L 07/06/25 22:26
Total Bilirubin 0.4 mg/dl (0.2-1.3) 07/10/25 07:33
AST 28 U/L (17-59) 07/10/25 07:33
ALT 26 U/L (0-50) 07/10/25 07:33
Alkaline Phosphatase 72 U/L (38-126) 07/10/25 07:33
Most recent labs reviewed.
Micro Results:
07/06/25 22:53 Body Fluid Culture - Final
Fluid No Growth After 72 Hours
Gram Stain - Final
07/06/25 16:46 Blood Culture - Preliminary
Blood/Venous No Growth in 72 hours- Final report to follow
07/06/25 16:06 Blood Culture - Preliminary
Blood/Venous No Growth in 72 hours- Final report to follow
07/06/25 22:53 Body Fluid Culture - Final
Fluid Escherichia coli
Gram Stain - Final
07/08/25 05:53 Blood Parasites Smear - Final
Blood/Venous
07/07/25 20:13 Nasal Screen MRSA (PCR) - Final
Nose MRSA not detected - performed by PCR methodology.
07/07/25 14:45 Influenza Type A (PCR) - Final
Nasalpharynx Not Detected
Influenza Type A (H1) (PCR) - Final
Not Detected
Influenza Type A (H3) (PCR) - Final
Not Detected
Influenza Type B (PCR) - Final
Not Detected
Resp Syncytial Virus Type A (PCR) - Final
Not Detected
Resp Syncytial Virus Type B (PCR) - Final
Not Detected
Adenovirus DNA (PCR) - Final
Not Detected
Human Metapneumovirus (PCR) - Final
Not Detected
Parainfluenza Virus Type 1 (PCR) - Final
Not Detected
Parainfluenza Virus Type 2 (PCR) - Final
Not Detected
Parainfluenza Virus Type 3 (PCR) - Final
Not Detected
Parainfluenza Virus Type 4 - Final
Not Detected
Rhinovirus (PCR) - Final
Not Detected
07/06/25 16:46 Influenza Types A & B (PINKY) - Final
Nasal Swab Negative for Influenza A & B, NAAT
Negative results must be combined with clinical observations
and patient history.
Nucleic Acid Amplification test (NAAT)performed on the
[employer] platform.
Fluid Cult/not urine Final 07/09/25-828
Many Escherichia coli
Many Diptheroids
Organism 1 Escherichia coli
1. Escherichia coli
M.I.C. RX
--------- ---
Amoxicillin/Potas. Clavulanate <=8/4 S
Ampicillin >16 R
Ampicillin/Sulbactam 16/8 I
Aztreonam <=4 S
Cefazolin 4 I
Cefepime <=2 S
Ceftazidime <=1 S
Ceftriaxone <=1 S
Ertapenem <=0.5 S
Ciprofloxacin >2 R
Gentamicin <=2 S
Meropenem <=1 S
Piperacillin/Tazobactam <=8 S
Tetracycline >8 R
Tobramycin <=2 S
Trimethoprim/Sulfamethoxazole >2/[address] Scan: Image Reviewed and Report Reviewed (Enlarged anterior abdominal wall fluid collection as described above. Again possible postoperative seroma or hematoma. Infected fluid not excluded. Drain no longer presen)
Care Review
Plan reviewed with: Physician (Dr Quinonez and Dr Alba - transfer)
--- NOTE | 2025-07-10 13:16 | W.DCSUMMARY ---
Discharge Summary
Discharge Data
Date of Admission: 07/06/25
Date of Discharge: 07/10/25
-
Pending Results: No
Hospital Course
Primary diagnoses:
Likely infected abdominal wall hematoma/seroma
Secondary diagnoses:
h/o acute blood loss anemia
Right lower extremity DVT (Jun 2025)
Hyponatremia, mild
Prostate CA with localized recurrence
Consultants:
Infectious disease
General Surgery
Imaging:
CT A/P 07/10: Enlarged anterior abdominal wall fluid collection as described above. Again possible postoperative seroma or hematoma. Infected fluid not excluded. Drain no longer present. See above. Mild diffuse increased density to the subcutaneous
tissues likely postoperative change versus less likely volume overload or third spacing. Small bilateral pleural effusions. New on the right. Progressed on the left. Minimal bibasilar consolidation probably atelectasis. New. Bilateral hypodense
renal lesions likely benign cysts. Moderate free fluid in the pelvis. Improved.
CT A/P 07/06:
1. There is heterogeneous thickening/expansion of the ventral abdominal wall soft tissues/rectus abdominis musculature, with a surgical drain in place. Mild overlying subcutaneous inflammatory change. Findings are most in keeping with postoperative
changes with seroma/hematoma formation within and just deep to the abdominal wall musculature. No intraperitoneal extension. No convincing evidence for abscess. No evidence for recurrent abdominal wall hernia.
2. Probable mild postoperative ileus.
3. Urinary bladder contains a small amount of intravesical gas anteriorly, possibly related to recent instrumentation (versus cystitis).
Hospital course: 59-year-old male who presented with a chief complaint of fevers outlined in the H&P done on admission. The patient had underwent recent ventral hernia repair with partial bowel resection (06/17) and hematoma evacuation (06/24) at
[facility]. He had [address] on admission that were removed while hospitalized. Imaging above. The patient had a leukocytosis that resolved. He he was on Zosyn while hospitalized. He was to transition to Augmentin through 07/19/25 but due to
fever he had a repeat CT scan of the abdomen pelvis. As per Dr. Alba there was new gas within the fluid collection. Transfer to [facility] was recommended and the patient is being transferred to [facility] under the service of Dr. Bg Umanzor at this time.
Discharge Plan
-
Patient Disposition: Acute [facility]
Condition: Fair
Discharge Orders:
Discharge Patient (As Directed); Ordered 07/10/25
Ordered By: Sher Quinonez
Discharge Date and Time
Print Language: IRANIAN
[2025-07-10] MEDS: ZOSYN 50 IV (13:29)
[2025-07-10] MEDS: FLUZONE (6 mos+) 2025-2026 FORMULA 0.5 ML IM (13:32)
[2025-07-10 15:27] VITALS: BP 138/77
--- NOTE | 2025-07-10 16:23 | PN.CDI ---
CDI
- -
CDI:
Physician Documentation Request
Admit Date: 07/06/25 22:56
Dear Doctor,
Patient admitted for infected hematoma.
07/10 Hospitalist PN: 'Possibly infected abdominal wall hematoma/seroma:
-recent ventral hernia repair with partial bowel resection (06/17) and hematoma evacuation (06/24) at [facility]
-presented with fever...FCx with E coli
-was on Zosyn, now transitioned to Augmentin through 07/19/25'
Please clarify the following:
Infected hematoma is a complication of the surgery
Infected hematoma is unexpected but is NOT a complication of the surgery
Infected hematoma is an expected occurrence and is not a complication of surgery
Infected hematoma is inherent to/unavoidable during the surgery and is not a complication
Other
Use of terms such as suspected, likely, concern for, or probable (associated with a specific diagnosis that is being evaluated, monitored, or treated as if it exists) are acceptable and can be coded in the inpatient setting, when documented at the
time of discharge.
Thank you,
Cristina Ruggiero RN, BSN
CDI Specialist
Available via [place] text
Please use your independent medical judgment in providing your response.
--- NOTE | 2025-07-10 16:36 | PN.CDI ---
CDI
- -
CDI:
Physician Documentation Request
Admit Date: 07/06/25 22:56
Dear Doctor,
Patient admitted with infected hematoma.
07/10 General Surgery PN: 'CT reviewed, new gas within collection is noted. Concern for infected hematoma. Transfer to [facility] initiated.'
07/10 Infectious Disease PN: 'repeat CT a/p with IV contrast - larger and now with gas within the collection - more likely infected collection'
Based on the above, could you clarify in the progress notes, the appropriate diagnosis, if significant, that supports the above abnormalities and additional evaluation, monitoring and/or treatment rendered:
Gas gangrene
Infected hematoma only
Other
Unable to determine
Use of terms such as suspected, likely, concern for, or probable (associated with a specific diagnosis that is being evaluated, monitored, or treated as if it exists) are acceptable and can be coded in the inpatient setting, when documented at the
time of discharge.
Thank you,
Cristina Ruggiero RN, BSN
CDI Specialist
Available via [place] text
Please use your independent medical judgment in providing your response.
== END 2025-07-10 15:50 | disposition short-term general hospital (02) | DRG 863 ==
LOC: 4 WEST ACU 22:56
PROVIDERS: Emergency Medicine; Internal Medicine; Physician Assistant Medical; ADMITTING PHYSICIAN Internal Medicine; ATTENDING PHYSICIAN Internal Medicine; CONSULT PHYSICIAN Student in an Organized Health Care Education/Training Program; EMERGENCY PHYSICIAN Student in an Organized Health Care Education/Training Program; OTHER PHYSICIAN Surgery
DX: T81.40XA Infection following a procedure, unspecified, initial encounter (principal); L76.34 Postprocedural seroma of skin and subcutaneous tissue following other procedure; E87.1 Hypo-osmolality and hyponatremia; R65.10 Systemic inflammatory response syndrome (SIRS) of non-infectious origin without acute organ dysfunction; Y83.8 Other surgical procedures as the cause of abnormal reaction of the patient, or of later complication, without mention of misadventure at the time of the procedure; C61 Malignant neoplasm of prostate; Z11.52 Encounter for screening for COVID-19; Z79.01 Long term (current) use of anticoagulants; Z79.899 Other long term (current) drug therapy; Z86.718 Personal history of other venous thrombosis and embolism
CPT/HCPCS: 71046; 74177; 80048; 80053; 80202; 81003; 81015; 83605; 84145; 85025; 85027; 85610; 86803; 87015; 87040; 87070; 87077; 87186; 87205; 87207; 87502; 87633; 87641; 87811; 90656; 93005; 96361; 96365; 96367; 99285; G0008; Q9967